=== PATIENT | male | born 1945 | race Caucasian/White ===

== ENCOUNTER 2024-05-15 16:52 | Inpatient (IN) ==
[2024-05-15 17:27] LABS: BILIRUBIN,URINE NEGATIVE (NEGATIVE); BLOOD/HEMOGLOBIN,URINE NEGATIVE (NEGATIVE); GLUCOSE, URINE 3+ (NEGATIVE); KETONES,URINE NEGATIVE (NEGATIVE); LEUKOCYTE ESTERASE ,URINE 1+ (NEGATIVE); NITRITES,URINE NEGATIVE (NEGATIVE); PROTEIN,URINE 1+ (NEGATIVE); UROBILINOGEN,URINE NORMAL (NORMAL)
[2024-05-15 17:32] LABS: APPEARANCE,URINE CLEAR (CLEAR); COLOR,URINE YELLOW (YELLOW)
[2024-05-15 17:35] LABS: BACTERIA,URINE 1+ /HPF (NEGATIVE); RBC,URINE NONE SEEN /HPF (0-3); SQUAMOUS EPITHELIAL CELL,UR FEW /HPF (NEGATIVE)
[2024-05-15 18:18] LABS: BASOPHILS % (AUTO) 0.3 % (0.2-1.0); EOSINOPHILS % (AUTO) 0.6 % (0.9-2.9); HEMATOCRIT 25.3 % (42.0-54.0); HEMOGLOBIN 8.8 g/dL (13.5-18.0); LYMPHOCYTES # (AUTO) 0.5 X10^3/uL (1.3-2.9); LYMPHOCYTES % (AUTO) 8.2 % (21.0-51.0); MEAN CORPUSCULAR HEMOGLOBIN 37.9 pg (27.0-34.0); MEAN CORPUSCULAR HGB CONC 34.9 g/dL (33.0-35.0); MEAN CORPUSCULAR VOLUME 108.7 fL (80.0-100.0); MEAN PLATELET VOLUME 10.1 fL (7.4-11.0); MONOCYTES # (AUTO) 0.5 x10^3/uL (0.3-0.8); MONOCYTES % (AUTO) 8.2 % (0.0-13.0); NEUTROPHILS # (AUTO) 4.6 x10^3/uL (2.2-4.8); NEUTROPHILS % (AUTO) 82.7 % (42.0-75.0); PLATELET COUNT 63 X10^3/uL (150.0-450.0); RED BLOOD COUNT 2.33 X10^6/uL (4.7-6.0); RED CELL DISTRIBUTION WIDTH 14.9 % (11.6-16.5); WHITE BLOOD COUNT 5.6 X10^3/uL (3.6-10.0)
[2024-05-15 18:30] LABS: ALBUMIN 3.1 g/dL (3.4-5.0); CALCIUM 9.4 mg/dL (8.5-10.1); CARBON DIOXIDE 27.5 mmol/L (21-32); COR CA(FOR HYPOALB) 10.1 mg/dL (8.5-10.1); CREATININE 5.2 mg/dL (0.70-1.30); PLATELET MORPHOLOGY COMMENT NORMAL (NORMAL); POTASSIUM 3.5 mmol/L (3.5-5.1); TOTAL PROTEIN 7.8 g/dL (6.4-8.2)
[2024-05-15] MEDS: NS 1,000 ML IV 1,000 ML IV SCH ×2 (20:25→22:40)
[2024-05-15] MEDS: BUMEX INJ 1 MG VIAL IVP ONE (20:25)
--- NOTE | 2024-05-15 20:33 | DR.DIZZY ---
HPI Time seen Time Seen by Provider: 05/15/24 17:53 PCP Primary Care Physician: Leticia Haas HPI Comment HPI Comment: Patient is a very nice older gentleman who has chronic kidney disease stage IV and congestive heart failure. He was recently admitted to the hospital with acute on chronic kidney disease and CHF exacerbation. Upon discharge he was doing a little better but has been worsening as far as feeling weak. Denies shortness of breath at this time. Denies chest pain. Denies any nausea or vomiting. Patient states he does not wish to have dialysis and [facility] Discussed case with patient and his family about possibil ity of admission and may be placement and rehab facility for deconditioning but will await results of workup for further discussion. Complaint Chief Complaint:: Calixto's daughter states that the patient was discharged from this hospital last Sunday due to dehydration and vomitting. They state that they are unsure of the diagnosis given on discharge. The daughter states that her and her brother have been taking care of the patient since then and has noticed that he has gotten weaker every day since. His intake has been more decreased than normal, and they suspect that he has not been taking his insulin and medications as prescribed. The daughter states that when she checked on him today, he was noticeably more weak and could not walk on his own. She states that he also has not taken his insulin in 2-3 days now. COVID-19 Coronavirus risk:travel/contact w/high risk person: Yes Has patient experienced Coronavirus symptoms: Yes Coronavirus symptoms experienced: Fever Source History Provided: Patient, Family Member and Significant Other Mode of Arrival Mode of Arrival: Stretcher Timing Onset of Chief Complaint: 05/09/24 Context Stroke Symptoms: None PMH PMH Past Medical History: Yes Past Medical History: CHF, Coronary Artery Disease, Diabetes, Hypertension, Hypothyroidism and [place] Past Surgical History: Yes Surgical History: AAA Repair, Abdominal Surgery, Angioplasty/Stents and Lithotripsy Family History History of Family Medical Conditions: Yes Family Medical History: Diabetes Mellitus, [place], Coronary Artery Disease, Heart Failure and Hypertension Social History Does patient currently use any type of tobacco product: No Have you used tobacco products in the last 12 months: No Type of Tobacco Use: None Does any household member use tobacco: No Alcohol Use: None Do you use any recreational Drugs:: No Lives With: Family Lives Where: Home Travel Risk Coronavirus risk:travel/contact w/high risk person: Yes Has patient experienced Coronavirus symptoms: Yes Coronavirus symptoms experienced: Fever Infectious screening In the last 2 months have you had wt loss of >10#?: NO Have you had fever, night sweats or hemotysis?: No Have you traveled outside the country in the last 6 months?: No Isolation: Standard ROS Review of Systems Constitutional: See HPI, Weakness (Generalized weakness) and Fatigue; negative Fever Eyes: No Symptoms Reported ENTM: No Symptoms Reported Respiratoy: No Symptoms Reported Cardiovascular: No Symptoms Reported; negative Chest Pain or Syncope Gastrointestinal/Abdominal: No Symptoms Reported; negative Abdominal Pain, Diarrhea, Nausea or Vomiting Genitourinary: No Symptoms Reported Neurological: No Symptoms Reported Musculoskeletal: No Symptoms Reported Integumentary: No Symptoms Reported Hematologic/Lymphatic: No Symptoms Reported Endocrine: No Symptoms Reported Psychiatric: No Symptoms Reported All Other Systems: Reviewed and Negative PE Vital Signs Vitals: Vital Signs Temperature 101.8 F Temperature 99.8 F Pulse Rate 78 Pulse Rate 73 Pulse Rate 74 Pulse Rate 72 Pulse Rate 78 Pulse Rate 73 Pulse Rate 74 Pulse Rate 79 Pulse Rate 77 Pulse Rate 79 Pulse Rate 77 Pulse Rate 76 Pulse Rate 74 Pulse Rate 77 Pulse Rate 78 Pulse Rate 68 Pulse Rate 86 Pulse Rate 69 Pulse Rate 82 Respiratory Rate 19 Respiratory Rate 19 Respiratory Rate 16 Respiratory Rate 23 Respiratory Rate 25 Respiratory Rate 22 Respiratory Rate 16 Respiratory Rate 19 Respiratory Rate 21 Respiratory Rate 24 Respiratory Rate 21 Respiratory Rate 18 Respiratory Rate 16 Respiratory Rate 21 Respiratory Rate 17 Respiratory Rate 23 Respiratory Rate 31 Respiratory Rate 23 Respiratory Rate 18 Blood Pressure 130/59 Blood Pressure 115/52 Blood Pressure 125/59 Blood Pressure 125/59 Blood Pressure 124/59 Blood Pressure 114/55 Blood Pressure 123/58 Blood Pressure 122/58 Blood Pressure 131/94 Blood Pressure 132/60 O2 Sat by Pulse Oximetry 93 O2 Sat by Pulse Oximetry 94 O2 Sat by Pulse Oximetry 95 O2 Sat by Pulse Oximetry 95 O2 Sat by Pulse Oximetry 94 O2 Sat by Pulse Oximetry 96 O2 Sat by Pulse Oximetry 97 O2 Sat by Pulse Oximetry 95 O2 Sat by Pulse Oximetry 95 O2 Sat by Pulse Oximetry 95 O2 Sat by Pulse Oximetry 94 O2 Sat by Pulse Oximetry 95 O2 Sat by Pulse Oximetry 94 O2 Sat by Pulse Oximetry 94 O2 Sat by Pulse Oximetry 95 O2 Sat by Pulse Oximetry 96 O2 Sat by Pulse Oximetry 96 O2 Sat by Pulse Oximetry 95 General Limitations: No Limitations General Appearance: Alert and In No Apparent Distress Head Head Exam: Normal Inspection Eyes Eye exam: Normal Appearance ENT ENT Exam: Normal Exam, Normal Oropharynx and Normal External Ear Exam Neck Neck Exam: Normal Inspection and Full ROM Chest Chest Inspection: Normal Inspection Respiratory Respiratory Exam: Normal Lung Sounds Bilat Cardiovascular Cardiovascular Exam: Regular Rate and Normal Rhythm Abdominal Exam Abdominal Exam: Normal Inspection, Normal Bowel Sounds and Soft Rectal Rectal Exam: Deferred Extremeties Extremities Exam: Normal Inspection and Full ROM Back Back Exam: Normal Inspection and Full ROM Neurologic Neurological Exam: Alert and Oriented X3 Psychiatric Psychiatric Exam: Normal Affect and Normal Mood Skin Skin Exam: Warm, Dry, Intact and Normal Color COURSE Consultation Called: 21:29 Consultation Comments: Discussed case with Dr. Mckeon. He is agreeable to admission. Based on his results it appears he is in acute on chronic renal failure with failure to thrive. Possibly a little bit fluid overloaded but clinically he does not appear like it is as much overload. Possibly UTI. [facility]OR Labs Reviewed 05/15/24 17:58 05/15/24 17:58 Laboratory: WBC 5.6 X10^3/uL (3.6-10.0) 05/15/24 17:58 RBC 2.33 X10^6/uL (4.7-6.0) L 05/15/24 17:58 Hgb 8.8 g/dL (13.5-18.0) L 05/15/24 17:58 Hct 25.3 % (42.0-54.0) L 05/15/24 17:58 MCV 108.7 fL (80.0-100.0) H 05/15/24 17:58 MCH 37.9 pg (27.0-34.0) H 05/15/24 17:58 MCHC 34.9 g/dL (33.0-35.0) 05/15/24 17:58 RDW 14.9 % (11.6-16.5) 05/15/24 17:58 Plt Count 63 X10^3/uL (150.0-450.0) L 05/15/24 17:58 Plt Count Comment Decreased (ADEQUATE) 05/15/24 17:58 MPV 10.1 fL (7.4-11.0) 05/15/24 17:58 Neut % (Auto) 82.7 % (42.0-75.0) H 05/15/24 17:58 Lymph % (Auto) 8.2 % (21.0-51.0) L 05/15/24 17:58 [place] % (Auto) 8.2 % (0.0-13.0) 05/15/24 17:58 Eos % (Auto) 0.6 % (0.9-2.9) L 05/15/24 17:58 Baso % (Auto) 0.3 % (0.2-1.0) 05/15/24 17:58 Neut # (Auto) 4.6 x10^3/uL (2.2-4.8) 05/15/24 17:58 Lymph # (Auto) 0.5 X10^3/uL (1.3-2.9) L 05/15/24 17:58 [place] # (Auto) 0.5 x10^3/uL (0.3-0.8) 05/15/24 17:58 Eos # (Auto) 0.0 x10^3/uL (0.0-0.2) 05/15/24 17:58 Baso # (Auto) 0.0 X10^3/uL (0.0-0.1) 05/15/24 17:58 Absolute Nucleated RBC 0.2 /100WBC 05/15/24 17:58 Plt Morphology Comment Normal (NORMAL) 05/15/24 17:58 RBC Morphology Abnormal (NORMAL) 05/15/24 17:58 Macrocytosis 1+ A 05/15/24 17:58 Sodium 134 mmol/L (136-145) L 05/15/24 17:58 Corrected Sodium 137 mmol/L (136-145) 05/15/24 17:58 Potassium 3.5 mmol/L (3.5-5.1) 05/15/24 17:58 Chloride 95 mmol/L (98-107) L 05/15/24 17:58 Carbon Dioxide 27.5 mmol/L (21-32) 05/15/24 17:58 BUN 107 mg/dL (7-18) H 05/15/24 17:58 Creatinine 5.20 mg/dL (0.70-1.30) H 05/15/24 17:58 Est GFR (MDRD) Af Amer 14 (>60) L 05/15/24 17:58 Est GFR (MDRD) Non-Af 11 (>60) L 05/15/24 17:58 Glucose 230 mg/dL (65-99) H 05/15/24 17:58 Calcium 9.4 mg/dL (8.5-10.1) 05/15/24 17:58 Corrected Calcium 10.1 mg/dL (8.5-10.1) 05/15/24 17:58 Total Bilirubin 1.40 mg/dL (0.2-1.0) H 05/15/24 17:58 AST 90 Units/L (15-37) H 05/15/24 17:58 ALT 73 Units/L (12-78) 05/15/24 17:58 Alkaline Phosphatase 280 Units/L (46-116) H 05/15/24 17:58 B-Natriuretic Peptide 1260 pg/mL (0-79) H 05/15/24 17:58 Total Protein 7.8 g/dL (6.4-8.2) 05/15/24 17:58 Albumin 3.1 g/dL (3.4-5.0) L 05/15/24 17:58 Globulin 4.7 g/dL (2.5-4.5) H 05/15/24 17:58 Albumin/Globulin Ratio 0.7 Ratio (1.1-2.1) L 05/15/24 17:58 Specimen Type Clean catch urine 05/15/24 17:20 Urine Color Yellow (YELLOW) 05/15/24 17:20 Urine Appearance Clear (CLEAR) 05/15/24 17:20 Urine pH 6.0 (5.0 - 8.0) 05/15/24 17:20 Ur Specific [place] 1.015 (1.000-1.030) 05/15/24 17:20 Urine Protein 1+ (NEGATIVE) 05/15/24 17:20 Urine Glucose (UA) 3+ (NEGATIVE) 05/15/24 17:20 Urine Ketones Negative (NEGATIVE) 05/15/24 17:20 Urine Blood Negative (NEGATIVE) 05/15/24 17:20 Urine Nitrite Negative (NEGATIVE) 05/15/24 17:20 Urine Bilirubin Negative (NEGATIVE) 05/15/24 17:20 Urine Urobilinogen Normal (NORMAL) 05/15/24 17:20 Ur Leukocyte Esterase 1+ (NEGATIVE) 05/15/24 17:20 Urine RBC None seen /HPF (0-3) 05/15/24 17:20 Urine WBC 10-20 /HPF (0-5) A 05/15/24 17:20 Ur Squamous Epith Cells Few /HPF (NEGATIVE) 05/15/24 17:20 Urine Bacteria 1+ /HPF (NEGATIVE) 05/15/24 17:20 Ur Culture Indicated? Yes/culture set up 05/15/24 17:20 Opioid Opioid Risk Tool Age (Murali box if 16-45): No History of Preadolescent Sexual Abuse: No Total: 0 Total Score Risk Category: Low Risk Copyright: Christopher CHIRINOS predicting aberrant behaviors Discharge Plan Diagnosis Discharge Problem: CHF (congestive heart failure), Adult failure to thrive, UTI (urinary tract infection) Acute on chronic kidney failure Qualifiers: Chronic kidney disease stage: stage 4 (GFR 15-29) Discharge Plan Patient Disposition: 09 ADMITTED INPATIENT Condition: Stable Prescriptions: No Action carvedilol 12.5 mg Tablet 12.5 mg PO BID allopurinol 100 mg Tablet 100 mg PO DAILY isosorbide mononitrate 60 mg Tablet Extended Release 24 Hr 60 mg PO DAILY tamsulosin 0.4 mg Capsule 0.4 mg PO DAILY aspirin 81 mg Tablet 81 mg PO DAILY ezetimibe 10 mg Tablet 5 mg PO DAILY cholecalciferol (vitamin D3) [Vitamin D3] 25 mcg (1,000 unit) Tablet 25 mcg PO DAILY levothyroxine 100 mcg Capsule 100 mcg PO DAILY apixaban 2.5 mg Tablet 2.5 mg PO BID sacubitril-valsartan 24-26 mg Tablet 26 tab PO BID furosemide 40 mg Tablet 40 mg PO DAILY metolazone 5 mg Tablet 5 mg PO DAILY bumetanide 1 mg Tablet 1 mg PO DAILY Novolin N NPH U-100 Insulin 100 unit/mL Suspension 30 unit SUBCUT BID metoclopramide HCl [Reglan] 10 mg Tablet 10 mg PO QACHS 30 Days Qty: 120 0RF pantoprazole 40 mg Tablet,Delayed Release (Dr/Ec) 40 mg PO BID 30 Days Qty: 60 0RF ondansetron 4 mg Tablet,Disintegrating 4 mg PO Q4H PRNQty: 30 0RF Health Concerns: Post Hospitalization: new medications and changes needed to prevent readmission or further decline. Pt educated and given instructions on all concerns. Plan of Treatment: Continue with present treatment and follow up plan. Pt is to keep follow up appointment as instructed and take medications as ordered. Orders to Discharge Patient Discharge Orders: Transfer (Routine); Ordered 05/15/24 Ordered By: Thomas Pena Follow ups/Referrals Follow ups/Referrals: ,Misc [Primary Care Provider] - 3 days Instructions Stand Alone Forms: Find Help Web Site, Post Hospital Follow Up Care
[2024-05-15] MEDS: ZOSYN VIAL 3.375 GRAMS 3.375 G in NS 100 ML IV 100 ML IV ONE (21:03)
[2024-05-15] MEDS: OFIRMEV IV 1000 MG VIAL 1,000 MG/100 ML VIAL IV ONE (21:03)
--- NOTE | 2024-05-15 21:57 | RAD ---
EXAM:CHEST, 1 VIEWHISTORY:WEAKNESS, ELEVATED BNP ; CT, CAD, HTN, DM, CHF SX: AAA REPAIR, ABD SX, ANGIO/STENTS, LITHOTRIPSYCOMPARISON:None.TECHNIQUE:1 frontal view of the chestFINDINGS:Pacemaker with power pack on the right. Median sternotomy wires. Heart silhouette is enlarged. Underlying interstitial lung disease. Mild airspace infiltrates in the left lower lung. Mild pulmonary vascular congestion.IMPRESSION:Cardiomegaly with interstitial lung disease. Mild pulmonary vascular congestion. Left lower lobe atelectasis versus pneumonia.THIS IS AN ELECTRONICALLY VERIFIED FINAL REPORT05/15/2024 9:53 PM - Electronically signed by Mikael Tejada MD
[2024-05-15 22:16] LABS: BILIRUBIN,URINE NEGATIVE (NEGATIVE); BLOOD/HEMOGLOBIN,URINE NEGATIVE (NEGATIVE); GLUCOSE, URINE 3+ (NEGATIVE); KETONES,URINE NEGATIVE (NEGATIVE); LEUKOCYTE ESTERASE ,URINE 1+ (NEGATIVE); NITRITES,URINE NEGATIVE (NEGATIVE); PROTEIN,URINE NEGATIVE (NEGATIVE); UROBILINOGEN,URINE NORMAL (NORMAL)
[2024-05-15 22:19] LABS: APPEARANCE,URINE CLEAR (CLEAR); COLOR,URINE YELLOW (YELLOW)
[2024-05-15 22:22] LABS: RBC,URINE 0-2 /HPF (0-3)
[2024-05-15] MEDS ORDERED: CONSULT PHARMACY - POTASSIUM & MAGNESIUM XX SCH (22:22)
[2024-05-15 22:23] LABS: BACTERIA,URINE 2+ /HPF (NEGATIVE); HYALINE CASTS, URINE RARE /LPF (NEGATIVE); SQUAMOUS EPITHELIAL CELL,UR RARE /HPF (NEGATIVE)
[2024-05-15] MEDS ORDERED: NS 1,000 ML IV 1,000 ML ONE (22:37)
[2024-05-15] MEDS: KLOR-CON 10 MEQ TAB PO ONE (23:42)
[2024-05-15] MEDS: ROCEPHIN VIAL 1 GRAM 1 G in NS 100 ML IV 100 ML IV SCH (23:42)
[2024-05-16 00:17] VITALS: BMI 26.9
[2024-05-16 04:59] LABS: BASOPHILS % (AUTO) 0.6 % (0.2-1.0); EOSINOPHILS % (AUTO) 0.1 % (0.9-2.9); HEMATOCRIT 24.4 % (42.0-54.0); HEMOGLOBIN 8.5 g/dL (13.5-18.0); LYMPHOCYTES # (AUTO) 0.4 X10^3/uL (1.3-2.9); LYMPHOCYTES % (AUTO) 7.9 % (21.0-51.0); MEAN CORPUSCULAR HEMOGLOBIN 37.8 pg (27.0-34.0); MEAN CORPUSCULAR HGB CONC 34.9 g/dL (33.0-35.0); MEAN CORPUSCULAR VOLUME 108.3 fL (80.0-100.0); MONOCYTES # (AUTO) 0.5 x10^3/uL (0.3-0.8); MONOCYTES % (AUTO) 8.7 % (0.0-13.0); NEUTROPHILS # (AUTO) 4.6 x10^3/uL (2.2-4.8); NEUTROPHILS % (AUTO) 82.7 % (42.0-75.0); PLATELET COUNT 51 X10^3/uL (150.0-450.0); RED BLOOD COUNT 2.26 X10^6/uL (4.7-6.0); RED CELL DISTRIBUTION WIDTH 14.9 % (11.6-16.5); WHITE BLOOD COUNT 5.5 X10^3/uL (3.6-10.0)
[2024-05-16 05:20] LABS: ALBUMIN 2.6 g/dL (3.4-5.0); CALCIUM 8.6 mg/dL (8.5-10.1); CARBON DIOXIDE 25.8 mmol/L (21-32); COR CA(FOR HYPOALB) 9.7 mg/dL (8.5-10.1); CREATININE 5.24 mg/dL (0.70-1.30); MAGNESIUM 1.9 mg/dL (2.0-2.9); POTASSIUM 3.3 mmol/L (3.5-5.1); TOTAL PROTEIN 6.8 g/dL (6.4-8.2)
[2024-05-16] MEDS ORDERED: CONSULT PHARMACY - POTASSIUM & MAGNESIUM XX SCH (06:00)
[2024-05-16] MEDS: NovoLIN R (or HumuLIN R) SUBCUT PRN (06:01)
[2024-05-16 06:40] LABS: PLATELET MORPHOLOGY COMMENT NORMAL (NORMAL)
[2024-05-16] MEDS: K-DUR TAB 20 MEQ PO SCH (09:03)
[2024-05-16] MEDS: FLOMAX PO SCH (09:03)
[2024-05-16] MEDS: SYNTHROID 100 mcg TAB PO SCH (09:03)
[2024-05-16] MEDS: ELIQUIS PO SCH (09:03)
[2024-05-16] MEDS: MAG-OX TAB PO SCH (09:03)
[2024-05-16] MEDS: COREG TAB 12.5 MG PO SCH (09:03)
[2024-05-16] MEDS: NS 250 ML IV 250 ML IV ONE ×2 (14:36→14:40)
--- NOTE | 2024-05-16 15:00 | DR.H&P ---
H&P History & Physical for Day of: H&P Date: 05/15/24 Chief Complaint Chief Complaint: WEAKNESS, POOR APPETITE History of Present Illness History of Present Illness: Patient is a 79 WM, ER admission, who has chronic kidney disease stage IV and congestive heart failure. He was recently admitted to the hospital with acute on chronic kidney disease and CHF exacerbation. Upon discharge he was doing a little better but has been worsening as far as feeling weak. Denies shortness of breath at this time. Denies chest pain. Denies any nausea or vomiting. Patient states he does not wish to have dialysis and he follows with the [facility]. Discussed case with patient and his family about possibility of admission and may be placement and rehab facility for deconditioning but will await results of workup for further discussion. Past Medical History Past Medical History: CHF, Coronary Artery Disease, Diabetes, Hypertension, Hypothyroidism and [place] Past Surgical History Surgical History: AAA Repair, Abdominal Surgery, Angioplasty/Stents and Lithotripsy Family History Family Medical History: Diabetes Mellitus, AR, Coronary Artery Disease, Heart Failure and Hypertension Social History Does patient currently use any type of tobacco product: No Have you used tobacco products in the last 12 months: No Type of Tobacco Use: None Does any household member use tobacco: No Alcohol Use: None Drug Use: None Medications Home Medications: Home Medications Medication Instructions Recorded Confirmed Type allopurinol 100 mg tablet 100 mg PO DAILY 05/06/24 05/15/24 History apixaban 2.5 mg tablet 2.5 mg PO BID 05/06/24 05/15/24 History aspirin 81 mg tablet 81 mg PO DAILY 05/06/24 05/15/24 History bumetanide 1 mg tablet 1 mg PO DAILY 05/06/24 05/15/24 History carvedilol 12.5 mg tablet 12.5 mg PO BID 05/06/24 05/15/24 History cholecalciferol (vitamin D3) 25 25 mcg PO DAILY 05/06/24 05/15/24 History mcg (1,000 unit) tablet (Vitamin D3) ezetimibe 10 mg tablet 5 mg PO DAILY 05/06/24 05/15/24 History furosemide 40 mg tablet 40 mg PO DAILY 05/06/24 05/15/24 History isosorbide mononitrate 60 mg 60 mg PO DAILY 05/06/24 05/15/24 History tablet,extended release 24 hr levothyroxine 100 mcg capsule 100 mcg PO DAILY 05/06/24 05/15/24 History metolazone 5 mg tablet 5 mg PO DAILY 05/06/24 05/15/24 History sacubitril 24 mg-valsartan 26 mg 26 tab PO BID 05/06/24 05/15/24 History tablet tamsulosin 0.4 mg capsule 0.4 mg PO DAILY 05/06/24 05/15/24 History insulin NPH isoph U-100 human 100 30 unit subcut BID 05/07/24 05/15/24 History unit/mL subcutaneous suspension (Novolin N NPH U-100 Insulin isophane) Allergies Allergies Allergy/AdvReac Type Severity Reaction Status Date / Time codeine Allergy Verified 05/15/24 16:53 Labs 05/16/24 04:15 05/16/24 04:15 Labs: 05/15/24 17:58 Blood Blood Culture Gram Stain - Final 05/15/24 21:00 Blood Blood Culture Gram Stain - Final 05/15/24 21:00 Blood Blood Culture - Preliminary 05/15/24 17:20 Urine,Clean Catch Urine Culture - Preliminary Laboratory WBC 5.5 X10^3/uL (3.6-10.0) 05/16/24 04:15 RBC 2.26 X10^6/uL (4.7-6.0) L 05/16/24 04:15 Hgb 8.5 g/dL (13.5-18.0) L 05/16/24 04:15 Hct 24.4 % (42.0-54.0) L 05/16/24 04:15 MCV 108.3 fL (80.0-100.0) H 05/16/24 04:15 MCH 37.8 pg (27.0-34.0) H 05/16/24 04:15 MCHC 34.9 g/dL (33.0-35.0) 05/16/24 04:15 RDW 14.9 % (11.6-16.5) 05/16/24 04:15 Plt Count 51 X10^3/uL (150.0-450.0) L 05/16/24 04:15 Plt Count Comment Decreased (ADEQUATE) 05/16/24 04:15 MPV 10.0 fL (7.4-11.0) 05/16/24 04:15 Neut % (Auto) 82.7 % (42.0-75.0) H 05/16/24 04:15 Lymph % (Auto) 7.9 % (21.0-51.0) L 05/16/24 04:15 [place] % (Auto) 8.7 % (0.0-13.0) 05/16/24 04:15 Eos % (Auto) 0.1 % (0.9-2.9) L 05/16/24 04:15 Baso % (Auto) 0.6 % (0.2-1.0) 05/16/24 04:15 Neut # (Auto) 4.6 x10^3/uL (2.2-4.8) 05/16/24 04:15 Lymph # (Auto) 0.4 X10^3/uL (1.3-2.9) L 05/16/24 04:15 [place] # (Auto) 0.5 x10^3/uL (0.3-0.8) 05/16/24 04:15 Eos # (Auto) 0.0 x10^3/uL (0.0-0.2) 05/16/24 04:15 Baso # (Auto) 0.0 X10^3/uL (0.0-0.1) 05/16/24 04:15 Absolute Nucleated RBC 0.0 /100WBC 05/16/24 04:15 Plt Morphology Comment Normal (NORMAL) 05/16/24 04:15 RBC Morphology Abnormal (NORMAL) 05/16/24 04:15 Macrocytosis 1+ A 05/16/24 04:15 Sodium 135 mmol/L (136-145) L 05/16/24 04:15 Corrected Sodium 138 mmol/L (136-145) 05/16/24 04:15 Potassium 3.3 mmol/L (3.5-5.1) L 05/16/24 04:15 Chloride 98 mmol/L (98-107) 05/16/24 04:15 Carbon Dioxide 25.8 mmol/L (21-32) 05/16/24 04:15 BUN 111 mg/dL (7-18) H 05/16/24 04:15 Creatinine 5.24 mg/dL (0.70-1.30) H 05/16/24 04:15 Est GFR (MDRD) Af Amer 14 (>60) L 05/16/24 04:15 Est GFR (MDRD) Non-Af 11 (>60) L 05/16/24 04:15 Glucose 226 mg/dL (65-99) H 05/16/24 04:15 POC Glucose (mg/dL) 226 mg/dL (65-99) H 05/16/24 12:23 Hemoglobin A1c 6.8 % 05/16/24 04:15 Lactic Acid 1.7 mmol/L (0.4-2.0) 05/15/24 21:00 Calcium 8.6 mg/dL (8.5-10.1) 05/16/24 04:15 Corrected Calcium 9.7 mg/dL (8.5-10.1) 05/16/24 04:15 Magnesium 1.9 mg/dL (2.0-2.9) L 05/16/24 04:15 Magnesium Cancelled 05/16/24 04:15 Total Bilirubin 1.70 mg/dL (0.2-1.0) H 05/16/24 04:15 AST 65 Units/L (15-37) H 05/16/24 04:15 ALT 57 Units/L (12-78) 05/16/24 04:15 Alkaline Phosphatase 220 Units/L (46-116) H 05/16/24 04:15 B-Natriuretic Peptide 2290 pg/mL (0-79) H 05/16/24 04:15 Total Protein 6.8 g/dL (6.4-8.2) 05/16/24 04:15 Albumin 2.6 g/dL (3.4-5.0) L 05/16/24 04:15 Globulin 4.2 g/dL (2.5-4.5) 05/16/24 04:15 Albumin/Globulin Ratio 0.6 Ratio (1.1-2.1) L 05/16/24 04:15 Specimen Type Catherized urine 05/15/24 22:08 Urine Color Yellow (YELLOW) 05/15/24 22:08 Urine Appearance Clear (CLEAR) 05/15/24 22:08 Urine pH 6.0 (5.0 - 8.0) 05/15/24 22:08 Ur Specific [place] 1.010 (1.000-1.030) 05/15/24 22:08 Urine Protein Negative (NEGATIVE) 05/15/24 22:08 Urine Glucose (UA) 3+ (NEGATIVE) 05/15/24 22:08 Urine Ketones Negative (NEGATIVE) 05/15/24 22:08 Urine Blood Negative (NEGATIVE) 05/15/24 22:08 Urine Nitrite Negative (NEGATIVE) 05/15/24 22:08 Urine Bilirubin Negative (NEGATIVE) 05/15/24 22:08 Urine Urobilinogen Normal (NORMAL) 05/15/24 22:08 Ur Leukocyte Esterase 1+ (NEGATIVE) 05/15/24 22:08 Urine RBC 0-2 /HPF (0-3) 05/15/24 22:08 Urine WBC 10-20 /HPF (0-5) A 05/15/24 22:08 Ur Squamous Epith Cells Rare /HPF (NEGATIVE) 05/15/24 22:08 Urine Bacteria 2+ /HPF (NEGATIVE) 05/15/24 22:08 Hyaline Casts Rare /LPF (NEGATIVE) 05/15/24 22:08 Ur Culture Indicated? Yes/culture set up 05/15/24 22:08 SARS-CoV-2 (PCR) Negative (NEGATIVE) 05/15/24 20:52 Influenza Type A (PCR) Negative (NEGATIVE) 05/15/24 20:52 Influenza Type B (PCR) Negative (NEGATIVE) 05/15/24 20:52 RSV (PCR) Negative (NEGATIVE) 05/15/24 20:52 Review of Systems Constitutional: Weakness Eyes: No Symptoms Reported ENT: No Symptoms Reported Respiratory: denies Shortness of Breath Cardiovascular: Edema; denies Chest Pain Gastrointestinal: Nausea and Other (appetite loss) Genitourinary: Frequency Musculoskeletal: No Symptoms Reported Skin: No Symptoms Reported Neurological: Weakness Physical Exam Vital Signs: Vital Signs Temperature 98.1 F Temperature 97.9 F Pulse Rate [Left Apical] 63 Pulse Rate [Left Apical] 63 Respiratory Rate 22 Respiratory Rate 17 Blood Pressure [Left Arm] 92/56 Blood Pressure [Left Arm] 97/46 O2 Sat by Pulse Oximetry 95 O2 Sat by Pulse Oximetry 97 Oriented: Normal Eyes: Normal Ear: Normal Nose: Normal Throat: Dry Respiratory: Diminished Throughout Cardiovascular: Other (pacemaker palpable ); negative Tachycardia : Frequency Auscultation: Bowel Sounds: Normal Palpation: Normal Tenderness: Normal Skin: Decreased [place]urgur Musculoskeletal: Motor Deficit Psychiatric: Normal Mood Description: Calm Affect: Normal Speech Pattern: Clear and Appropriate Assessment/Plan (1) UTI (urinary tract infection): Status: Acute Plan: ADMIT, IV HYDRATION, CARDIAC MONITORING AND BP CONTROL IV ATBX, VERIFY HOME MEDICATIONS BS CONTROL, GENTLE IV HYDRATION CXR ON ER ADMISSION (2) Acute on chronic kidney failure: Qualifiers: Chronic kidney disease stage: stage 4 (GFR 15-29) Status: Acute (3) CHF (congestive heart failure): Status: Chronic (4) CAD (coronary artery disease): Qualifiers: Coronary Disease-Associated Artery/Lesion type: unspecified vessel or lesion type [place] vs. transplanted heart: [place] heart Associated angina: [facility] angina Qualified Code(s): I25.10 - Atherosclerotic heart disease of [place] coronary artery without angina pectoris Status: Chronic (5) Adult failure to thrive: Status: Acute
[2024-05-16 15:05] LABS: RETICULOCYTE % 1.77 % (0.8-2.2)
--- NOTE | 2024-05-16 15:05 | PCM.PROG ---
Progress Note Progress Note for Day of Date of Exam: 05/16/24 Subjective Subjective: PT IS 79 WM, ER ADMISSION WITH ACUTE ON CHRONIC RENAL FAILURE, DIFFUSE WEAKNESS, POSSIBLE PNEUMONIA ON HIS ADMISSION CHEST XRAY. PT HAS PMH OF AFIB, WITH PACEMAKER/DEFIBRILLATOR ON [facility] ELIQUIS. PT HGB AT 8.5 THIS AM PLATELETS AT 51. OCCULT STOOL ORDERED AND ANEMIA PANEL WILL HOLD ELIQUIS DOSE. PLAN TO OBTAIN AN ECHO. [facility]. PT DENIES CHEST PAIN THIS AM BUT REPORTS "FEELING THE SICKEST [facility] [facility]" CXR OBTAINED THIS AM NOT AVAILABLE ON MORNING ROUNDS. PT DOES HAVE A HUNT FOR STRICT I&OS. PT HAD A DOSE OF BUMEX IN ER ON ADMISSION. BUN 111M CREAT 5.24 CONTINUE WITH VERY GENTLE IV HYDRATION, ENCOURAGED ORAL HYDRATION, ORAL NUTRI TION. Past Medical Family Social History Allergies: Allergies codeine Allergy (Verified 05/15/24 16:53) Vital Signs and I&O's Vital Signs: Vital Signs Temperature 98.1 F Temperature 97.9 F Pulse Rate [Left Apical] 63 Pulse Rate [Left Apical] 63 Respiratory Rate 22 Respiratory Rate 17 Blood Pressure [Left Arm] 92/56 Blood Pressure [Left Arm] 97/46 O2 Sat by Pulse Oximetry 95 O2 Sat by Pulse Oximetry 97 Intake and Output: Intake & Output 05/14/24 05/15/24 05/16/24 05/17/24 11:59 11:59 11:59 11:59 Intake Total 590 / 590 Output Total 1600 / 1600 Balance -1010 / -1010 Physical Exam Oriented: Normal Eyes: Normal Ear: Normal Nose: Normal Throat: Dry Cardiovascular: Other (pacemaker palpable ); negative Tachycardia : Frequency Auscultation: Bowel Sounds: Normal Tenderness: Normal Skin: Decreased Turgur Musculoskeletal: Motor Deficit Psychiatric: Normal Mood Description: Calm Affect: Normal Speech Pattern: Clear and Appropriate Laboratory and Diagnostics 05/16/24 04:15 05/16/24 04:15 Labs: 05/15/24 17:58 Blood Blood Culture Gram Stain - Final 05/15/24 21:00 Blood Blood Culture Gram Stain - Final 05/15/24 21:00 Blood Blood Culture - Preliminary 05/15/24 17:20 Urine,Clean Catch Urine Culture - Preliminary Laboratory WBC 5.5 X10^3/uL (3.6-10.0) 05/16/24 04:15 RBC 2.26 X10^6/uL (4.7-6.0) L 05/16/24 04:15 Hgb 8.5 g/dL (13.5-18.0) L 05/16/24 04:15 Hct 24.4 % (42.0-54.0) L 05/16/24 04:15 MCV 108.3 fL (80.0-100.0) H 05/16/24 04:15 MCH 37.8 pg (27.0-34.0) H 05/16/24 04:15 MCHC 34.9 g/dL (33.0-35.0) 05/16/24 04:15 RDW 14.9 % (11.6-16.5) 05/16/24 04:15 Plt Count 51 X10^3/uL (150.0-450.0) L 05/16/24 04:15 Plt Count Comment Decreased (ADEQUATE) 05/16/24 04:15 MPV 10.0 fL (7.4-11.0) 05/16/24 04:15 Neut % (Auto) 82.7 % (42.0-75.0) H 05/16/24 04:15 Lymph % (Auto) 7.9 % (21.0-51.0) L 05/16/24 04:15 [place] % (Auto) 8.7 % (0.0-13.0) 05/16/24 04:15 Eos % (Auto) 0.1 % (0.9-2.9) L 05/16/24 04:15 Baso % (Auto) 0.6 % (0.2-1.0) 05/16/24 04:15 Neut # (Auto) 4.6 x10^3/uL (2.2-4.8) 05/16/24 04:15 Lymph # (Auto) 0.4 X10^3/uL (1.3-2.9) L 05/16/24 04:15 [place] # (Auto) 0.5 x10^3/uL (0.3-0.8) 05/16/24 04:15 Eos # (Auto) 0.0 x10^3/uL (0.0-0.2) 05/16/24 04:15 Baso # (Auto) 0.0 X10^3/uL (0.0-0.1) 05/16/24 04:15 Absolute Nucleated RBC 0.0 /100WBC 05/16/24 04:15 Plt Morphology Comment Normal (NORMAL) 05/16/24 04:15 RBC Morphology Abnormal (NORMAL) 05/16/24 04:15 Macrocytosis 1+ A 05/16/24 04:15 Sodium 135 mmol/L (136-145) L 05/16/24 04:15 Corrected Sodium 138 mmol/L (136-145) 05/16/24 04:15 Potassium 3.3 mmol/L (3.5-5.1) L 05/16/24 04:15 Chloride 98 mmol/L (98-107) 05/16/24 04:15 Carbon Dioxide 25.8 mmol/L (21-32) 05/16/24 04:15 BUN 111 mg/dL (7-18) H 05/16/24 04:15 Creatinine 5.24 mg/dL (0.70-1.30) H 05/16/24 04:15 Est GFR (MDRD) Af Amer 14 (>60) L 05/16/24 04:15 Est GFR (MDRD) Non-Af 11 (>60) L 05/16/24 04:15 Glucose 226 mg/dL (65-99) H 05/16/24 04:15 POC Glucose (mg/dL) 226 mg/dL (65-99) H 05/16/24 12:23 Hemoglobin A1c 6.8 % 05/16/24 04:15 Lactic Acid 1.7 mmol/L (0.4-2.0) 05/15/24 21:00 Calcium 8.6 mg/dL (8.5-10.1) 05/16/24 04:15 Corrected Calcium 9.7 mg/dL (8.5-10.1) 05/16/24 04:15 Magnesium 1.9 mg/dL (2.0-2.9) L 05/16/24 04:15 Magnesium Cancelled 05/16/24 04:15 Total Bilirubin 1.70 mg/dL (0.2-1.0) H 05/16/24 04:15 AST 65 Units/L (15-37) H 05/16/24 04:15 ALT 57 Units/L (12-78) 05/16/24 04:15 Alkaline Phosphatase 220 Units/L (46-116) H 05/16/24 04:15 B-Natriuretic Peptide 2290 pg/mL (0-79) H 05/16/24 04:15 Total Protein 6.8 g/dL (6.4-8.2) 05/16/24 04:15 Albumin 2.6 g/dL (3.4-5.0) L 05/16/24 04:15 Globulin 4.2 g/dL (2.5-4.5) 05/16/24 04:15 Albumin/Globulin Ratio 0.6 Ratio (1.1-2.1) L 05/16/24 04:15 Specimen Type Catherized urine 05/15/24 22:08 Urine Color Yellow (YELLOW) 05/15/24 22:08 Urine Appearance Clear (CLEAR) 05/15/24 22:08 Urine pH 6.0 (5.0 - 8.0) 05/15/24 22:08 Ur Specific [place] 1.010 (1.000-1.030) 05/15/24 22:08 Urine Protein Negative (NEGATIVE) 05/15/24 22:08 Urine Glucose (UA) 3+ (NEGATIVE) 05/15/24 22:08 Urine Ketones Negative (NEGATIVE) 05/15/24 22:08 Urine Blood Negative (NEGATIVE) 05/15/24 22:08 Urine Nitrite Negative (NEGATIVE) 05/15/24 22:08 Urine Bilirubin Negative (NEGATIVE) 05/15/24 22:08 Urine Urobilinogen Normal (NORMAL) 05/15/24 22:08 Ur Leukocyte Esterase 1+ (NEGATIVE) 05/15/24 22:08 Urine RBC 0-2 /HPF (0-3) 05/15/24 22:08 Urine WBC 10-20 /HPF (0-5) A 05/15/24 22:08 Ur Squamous Epith Cells Rare /HPF (NEGATIVE) 05/15/24 22:08 Urine Bacteria 2+ /HPF (NEGATIVE) 05/15/24 22:08 Hyaline Casts Rare /LPF (NEGATIVE) 05/15/24 22:08 Ur Culture Indicated? Yes/culture set up 05/15/24 22:08 SARS-CoV-2 (PCR) Negative (NEGATIVE) 05/15/24 20:52 Influenza Type A (PCR) Negative (NEGATIVE) 05/15/24 20:52 Influenza Type B (PCR) Negative (NEGATIVE) 05/15/24 20:52 RSV (PCR) Negative (NEGATIVE) 05/15/24 20:52 Plan (1) UTI (urinary tract infection): Status: Acute Plan: IV HYDRATION, CARDIAC MONITORING AND BP CONTROL ECHO, ANEMIA PANEL, OBTAIN OCCULT STOOL IV ATBX, VERIFY HOME MEDICATIONS BS CONTROL, GENTLE IV HYDRATION CXR ON ER ADMISSION (2) Acute on chronic kidney failure: Status: Acute Qualifiers: Chronic kidney disease stage: stage 4 (GFR 15-29) (3) CHF (congestive heart failure): Status: Chronic (4) CAD (coronary artery disease): Status: Chronic Qualifiers: Coronary Disease-Associated Artery/Lesion type: unspecified vessel or lesion type [place] vs. transplanted heart: [place] heart Associated angina: without angina Qualified Code(s): I25.10 - Atherosclerotic heart disease of [place] coronary artery without angina pectoris (5) Adult failure to thrive: Status: Acute
--- NOTE | 2024-05-16 15:11 | RAD ---
EXAM: CHEST, 1 VIEW HISTORY: CHF, PNEUMONIA; COMPARISON: Prior study or studies were utilized for comparison during interpretation with the most relevant valorie ed yesterday TECHNIQUE: CHEST, 1 VIEW FINDINGS: Chest: Lines and tubes: Right-sided pacemaker generator with lead or leads in satisfactory position. There are abandoned left-sided pacemaker leads. Cardiac leads overlie the chest Mediastinum: Median sternotomy wires are present. The cardiac shadow is enlarged. Pulmonary vessels: Pulmonary vasculature is prominent. Lung hoang: No suspicious airspace opacity. Pleura: No effusion. No pneumothorax. Bones and soft tissues: No acute osseous or soft tissue abnormality. IMPRESSION: 1. Slight improvement in pulmonary vascular congestion when compared to yesterday THIS IS AN ELECTRONICALLY VERIFIED FINAL REPORT 05/16/2024 3:01 PM - Electronically signed by Hayden Garcia MD
[2024-05-16] MEDS: PROTONIX INJ 40 MG VIAL IVP SCH (15:31)
[2024-05-16] MEDS: INJECTAFER 750 MG in NS 250 ML IV 250 ML IV NR (19:16)
[2024-05-16] MEDS: COLACE CAP 100 MG PO PRN (20:18)
[2024-05-16] MEDS: SNACK - Diabetic Appropriate PO SCH (20:35)
[2024-05-16] MEDS: LASIX IVP SCH (21:49)
[2024-05-16] MEDS: MILK OF MAGNESIA PO PRN (23:59)
--- NOTE | 2024-05-17 04:53 | RAD ---
PROCEDURE: Chest X-ray 1 View. HISTORY: CHF; HX: CAD, CHF, MA, HTN, DM SX: PACEMAKER, ANGIOPLASTY/STENTS . TECHNIQUE: AP view. COMPARISON: 05/16/2024. TECHNICAL QUALITY: Satisfactory. FINDINGS: Normal-sized heart with pacemaker on the right. Mediastinum and hilar regions show no masses or lymphadenopathy. Normal central vascularity. No pulmonary consolidation, masses, pleural fluid, or pneumothorax. No acute bony abnormality. IMPRESSION: No evidence of active cardiopulmonary disease. THIS IS AN ELECTRONICALLY VERIFIED FINAL REPORT 05/17/2024 4:49 AM - Electronically signed by Hussein Shea MD
[2024-05-17 05:13] LABS: EOSINOPHILS # (AUTO) 0.1 x10^3/uL (0.0-0.2); LYMPHOCYTES # (AUTO) 0.6 X10^3/uL (1.3-2.9); MEAN CORPUSCULAR HGB CONC 35.2 g/dL (33.0-35.0); MONOCYTES # (AUTO) 0.4 x10^3/uL (0.3-0.8); NEUTROPHILS # (AUTO) 1.8 x10^3/uL (2.2-4.8)
[2024-05-17 05:19] LABS: BASOPHILS % (AUTO) 0.6 % (0.2-1.0); EOSINOPHILS % (AUTO) 2.6 % (0.9-2.9); HEMATOCRIT 22.8 % (42.0-54.0); LYMPHOCYTES % (AUTO) 20.6 % (21.0-51.0); MEAN CORPUSCULAR HEMOGLOBIN 38.4 pg (27.0-34.0); MEAN PLATELET VOLUME 10.8 fL (7.4-11.0); MONOCYTES % (AUTO) 14.5 % (0.0-13.0); NEUTROPHILS % (AUTO) 61.7 % (42.0-75.0); PLATELET COUNT 45 X10^3/uL (150.0-450.0); RED BLOOD COUNT 2.09 X10^6/uL (4.7-6.0)
[2024-05-17 05:28] LABS: ALBUMIN 2.3 g/dL (3.4-5.0); CALCIUM 8.4 mg/dL (8.5-10.1); CARBON DIOXIDE 24.2 mmol/L (21-32); COR CA(FOR HYPOALB) 9.8 mg/dL (8.5-10.1); CREATININE 5.73 mg/dL (0.70-1.30); POTASSIUM 3.3 mmol/L (3.5-5.1); TOTAL PROTEIN 6.6 g/dL (6.4-8.2)
[2024-05-17 06:58] LABS: PLATELET MORPHOLOGY COMMENT NORMAL (NORMAL)
[2024-05-17 07:00] LABS: TARGET CELLS PRESENT
[2024-05-17] MEDS ORDERED: CONSULT PHARMACY - POTASSIUM & MAGNESIUM XX SCH (09:00)
[2024-05-17] MEDS: NS + KCL 20 MEQ/L 1,000 ML with MAGNESIUM SULFATE 50% INJ VIAL 1 G IV SCH (09:56)
[2024-05-17] MEDS ORDERED: NS 1,000 ML IV 1,000 ML IV SCH (10:00)
[2024-05-17] MEDS: LASIX IVP SCH (21:19)
[2024-05-17] MEDS: ZYVOX 600MG IV 600 MG/300 ML BAG IV SCH (22:18)
[2024-05-18] MEDS: TYLENOL 325 MG TAB PO PRN (02:21)
[2024-05-18 05:16] LABS: EOSINOPHILS # (AUTO) 0.1 x10^3/uL (0.0-0.2); HEMOGLOBIN 7.6 g/dL (13.5-18.0); MONOCYTES # (AUTO) 0.4 x10^3/uL (0.3-0.8); WHITE BLOOD COUNT 2.6 X10^3/uL (3.6-10.0)
[2024-05-18] MEDS ORDERED: TYLENOL 325 MG TAB PO PRN (05:18)
[2024-05-18 05:23] LABS: HEMATOCRIT 21.6 % (42.0-54.0); LYMPHOCYTES # (AUTO) 0.8 X10^3/uL (1.3-2.9); MONOCYTES % (AUTO) 15.5 % (0.0-13.0); NEUTROPHILS # (AUTO) 1.3 x10^3/uL (2.2-4.8)
[2024-05-18 05:27] LABS: BASOPHILS % (AUTO) 0.5 % (0.2-1.0); EOSINOPHILS % (AUTO) 5.1 % (0.9-2.9); LYMPHOCYTES % (AUTO) 28.6 % (21.0-51.0); MEAN CORPUSCULAR HEMOGLOBIN 38.2 pg (27.0-34.0); MEAN CORPUSCULAR HGB CONC 35.3 g/dL (33.0-35.0); MEAN CORPUSCULAR VOLUME 108.3 fL (80.0-100.0); NEUTROPHILS % (AUTO) 50.3 % (42.0-75.0); PLATELET COUNT 44 X10^3/uL (150.0-450.0); RED BLOOD COUNT 1.99 X10^6/uL (4.7-6.0); RED CELL DISTRIBUTION WIDTH 14.8 % (11.6-16.5)
[2024-05-18] MEDS: NORCO 5/325 MG TAB PO PRN (05:36)
[2024-05-18 05:50] LABS: CARBON DIOXIDE 25.2 mmol/L (21-32); COR CA(FOR HYPOALB) 9.6 mg/dL (8.5-10.1); CREATININE 5.58 mg/dL (0.70-1.30); MAGNESIUM 2.6 mg/dL (2.0-2.9); POTASSIUM 3.3 mmol/L (3.5-5.1)
[2024-05-18 07:03] LABS: PLATELET MORPHOLOGY COMMENT NORMAL (NORMAL); TARGET CELLS PRESENT
[2024-05-18] MEDS: NS + KCL 20 MEQ/L 1,000 ML IV SCH (10:30)
[2024-05-18] MEDS: K-DUR TAB 20 MEQ PO SCH (10:30)
[2024-05-18] MEDS: HEMOCYTE PLUS PO SCH (12:30)
[2024-05-18] MEDS: NS 250 ML IV 200 ML IV ONE (13:41)
[2024-05-18] MEDS: ZOFRAN INJ 4 MG VIAL IVP PRN (18:40)
[2024-05-18] MEDS: PROTONIX INJ 40 MG VIAL IVP ONE (19:11)
[2024-05-18] MEDS: ELIQUIS PO SCH (21:32)
[2024-05-19 05:49] LABS: BASOPHILS % (AUTO) 0.6 % (0.2-1.0); EOSINOPHILS # (AUTO) 0.2 x10^3/uL (0.0-0.2); EOSINOPHILS % (AUTO) 5.8 % (0.9-2.9); HEMATOCRIT 23.3 % (42.0-54.0); HEMOGLOBIN 8.1 g/dL (13.5-18.0); LYMPHOCYTES # (AUTO) 0.8 X10^3/uL (1.3-2.9); MEAN CORPUSCULAR HEMOGLOBIN 37.8 pg (27.0-34.0); MEAN CORPUSCULAR HGB CONC 34.7 g/dL (33.0-35.0); MEAN PLATELET VOLUME 10.9 fL (7.4-11.0); MONOCYTES # (AUTO) 0.3 x10^3/uL (0.3-0.8); MONOCYTES % (AUTO) 11.4 % (0.0-13.0); NEUTROPHILS # (AUTO) 1.6 x10^3/uL (2.2-4.8); NEUTROPHILS % (AUTO) 53.2 % (42.0-75.0); PLATELET COUNT 51 X10^3/uL (150.0-450.0); RED BLOOD COUNT 2.14 X10^6/uL (4.7-6.0); RED CELL DISTRIBUTION WIDTH 14.8 % (11.6-16.5); WHITE BLOOD COUNT 2.9 X10^3/uL (3.6-10.0)
--- NOTE | 2024-05-19 06:00 | RAD ---
EXAM: CHEST, 1 VIEW HISTORY: CHF; COMPARISON: 05/17/2024 FINDINGS: The cardiomediastinal silhouette is stable. Similar post sternotomy changes. Right-sided pacer and pacer wires unchanged. Similar residual left-sided pacer wires. No acute airspace disease. No pneumothorax or effusion. No acute osseous abnormality. IMPRESSION: No acute cardiopulmonary disease. THIS IS AN ELECTRONICALLY VERIFIED FINAL REPORT 05/19/2024 5:56 AM - Electronically signed by Keith Brandon MD
[2024-05-19 06:02] LABS: CALCIUM 8.1 mg/dL (8.5-10.1); CARBON DIOXIDE 24.4 mmol/L (21-32); COR CA(FOR HYPOALB) 9.7 mg/dL (8.5-10.1); CREATININE 4.78 mg/dL (0.70-1.30); POTASSIUM 4.1 mmol/L (3.5-5.1)
[2024-05-19 07:20] LABS: PLATELET MORPHOLOGY COMMENT NORMAL (NORMAL); TARGET CELLS SLIGHT
[2024-05-19] MEDS: LASIX IVP SCH (09:12)
[2024-05-19] MEDS: CONSULT PHARMACY - POTASSIUM & MAGNESIUM XX SCH (19:03)
[2024-05-19] MEDS: NS 250 ML IV 250 ML IV ONE (19:48)
[2024-05-20 05:11] LABS: BASOPHILS % (AUTO) 0.5 % (0.2-1.0); EOSINOPHILS # (AUTO) 0.2 x10^3/uL (0.0-0.2); EOSINOPHILS % (AUTO) 4.9 % (0.9-2.9); HEMATOCRIT 22.7 % (42.0-54.0); LYMPHOCYTES % (AUTO) 30.8 % (21.0-51.0); MEAN CORPUSCULAR HEMOGLOBIN 38.2 pg (27.0-34.0); MEAN CORPUSCULAR HGB CONC 35.4 g/dL (33.0-35.0); MEAN PLATELET VOLUME 10.4 fL (7.4-11.0); MONOCYTES # (AUTO) 0.4 x10^3/uL (0.3-0.8); MONOCYTES % (AUTO) 12.7 % (0.0-13.0); NEUTROPHILS # (AUTO) 1.6 x10^3/uL (2.2-4.8); NEUTROPHILS % (AUTO) 51.1 % (42.0-75.0); PLATELET COUNT 50 X10^3/uL (150.0-450.0); RED CELL DISTRIBUTION WIDTH 15.3 % (11.6-16.5); WHITE BLOOD COUNT 3.1 X10^3/uL (3.6-10.0)
[2024-05-20 05:19] LABS: ALBUMIN 1.9 g/dL (3.4-5.0); CALCIUM 8.1 mg/dL (8.5-10.1); CARBON DIOXIDE 24.5 mmol/L (21-32); COR CA(FOR HYPOALB) 9.8 mg/dL (8.5-10.1); CREATININE 4.83 mg/dL (0.70-1.30); POTASSIUM 4.1 mmol/L (3.5-5.1); TOTAL PROTEIN 5.8 g/dL (6.4-8.2)
[2024-05-20 05:47] LABS: ANISOCYTOSIS 1+; PLATELET MORPHOLOGY COMMENT NORMAL (NORMAL); TEAR DROP CELLS SLIGHT
[2024-05-20 09:45] LABS: FREE T4 (FREE THYROXINE) 1.12 ng/dL (0.76-1.46); TSH (3RD GENERATION) 11.563 uIU/mL (0.358-3.74)
[2024-05-20] MEDS: NS 1,000 ML IV 1,000 ML IV SCH (09:57)
[2024-05-20] MEDS: NS 100 ML IV 100 ML with VENOFER 400 MG IV ONE (10:05)
--- NOTE | 2024-05-20 11:20 | RAD ---
EXAM:CHEST, 1 VIEWHISTORY:chf;COMPARISON:Prior study or studies were utilized for comparison during interpretation with the most relevant dated yesterdayTECHNIQUE:CHEST, 1 VIEWFINDINGS:Chest:Lines and tubes: Right-sided pacemaker generator with lead or leads in satisfactory position. Abandoned left-sided pacemaker leads are noted.Mediastinum: Cardiomegaly.Pulmonary vessels: There is pulmonary vascular congestion.Lung hoang: No suspicious airspace opacity.Pleura: There is blunting of the left costophrenic angle. No pneumothorax.Bones and soft tissues: No acute osseous or soft tissue abnormality.IMPRESSION:1. Small left pleural effusion2. Findings suggest heart failureTHIS IS AN ELECTRONICALLY VERIFIED FINAL REPORT05/20/2024 11:18 AM - Electronically signed by Hayden Garcia MD
[2024-05-21] MEDS: SYNTHROID 150 mcg TAB PO SCH (05:34)
[2024-05-21] MEDS: KLOR-CON 10 MEQ TAB PO SCH (08:56)
[2024-05-21] MEDS: BACTROBAN TOPICAL OINT TOP SCH (08:56)
[2024-05-21] MEDS: LASIX IVP SCH (08:57)
[2024-05-21 09:34] LABS: BASOPHILS % (AUTO) 0.6 % (0.2-1.0); EOSINOPHILS # (AUTO) 0.2 x10^3/uL (0.0-0.2); EOSINOPHILS % (AUTO) 4.8 % (0.9-2.9); HEMATOCRIT 24.7 % (42.0-54.0); HEMOGLOBIN 8.5 g/dL (13.5-18.0); LYMPHOCYTES # (AUTO) 1.3 X10^3/uL (1.3-2.9); LYMPHOCYTES % (AUTO) 29.3 % (21.0-51.0); MEAN CORPUSCULAR HEMOGLOBIN 37.7 pg (27.0-34.0); MEAN CORPUSCULAR HGB CONC 34.3 g/dL (33.0-35.0); MEAN CORPUSCULAR VOLUME 109.8 fL (80.0-100.0); MEAN PLATELET VOLUME 10.7 fL (7.4-11.0); MONOCYTES # (AUTO) 0.3 x10^3/uL (0.3-0.8); MONOCYTES % (AUTO) 7.8 % (0.0-13.0); NEUTROPHILS # (AUTO) 2.5 x10^3/uL (2.2-4.8); NEUTROPHILS % (AUTO) 57.5 % (42.0-75.0); PLATELET COUNT 65 X10^3/uL (150.0-450.0); RED BLOOD COUNT 2.25 X10^6/uL (4.7-6.0); RED CELL DISTRIBUTION WIDTH 15.1 % (11.6-16.5); WHITE BLOOD COUNT 4.4 X10^3/uL (3.6-10.0)
[2024-05-21 09:48] LABS: CALCIUM 8.1 mg/dL (8.5-10.1); CARBON DIOXIDE 22.5 mmol/L (21-32); COR CA(FOR HYPOALB) 9.7 mg/dL (8.5-10.1); CREATININE 4.78 mg/dL (0.70-1.30); POTASSIUM 4.4 mmol/L (3.5-5.1); TOTAL PROTEIN 6.1 g/dL (6.4-8.2)
[2024-05-21 10:07] LABS: PLATELET MORPHOLOGY COMMENT NORMAL (NORMAL)
[2024-05-21] MEDS: AQUAPHOR TOP SCH (11:13)
[2024-05-21] MEDS: NYSTATIN OINT TOP SCH (11:14)
[2024-05-22 06:42] LABS: BASOPHILS % (AUTO) 0.9 % (0.2-1.0); EOSINOPHILS # (AUTO) 0.2 x10^3/uL (0.0-0.2); HEMATOCRIT 21.8 % (42.0-54.0); HEMOGLOBIN 7.5 g/dL (13.5-18.0); LYMPHOCYTES # (AUTO) 1.1 X10^3/uL (1.3-2.9); LYMPHOCYTES % (AUTO) 30.7 % (21.0-51.0); MEAN CORPUSCULAR HEMOGLOBIN 37.6 pg (27.0-34.0); MEAN CORPUSCULAR HGB CONC 34.4 g/dL (33.0-35.0); MEAN CORPUSCULAR VOLUME 109.2 fL (80.0-100.0); MEAN PLATELET VOLUME 9.4 fL (7.4-11.0); MONOCYTES # (AUTO) 0.3 x10^3/uL (0.3-0.8); MONOCYTES % (AUTO) 9.5 % (0.0-13.0); NEUTROPHILS # (AUTO) 1.9 x10^3/uL (2.2-4.8); NEUTROPHILS % (AUTO) 53.9 % (42.0-75.0); PLATELET COUNT 54 X10^3/uL (150.0-450.0); RED BLOOD COUNT 1.99 X10^6/uL (4.7-6.0); WHITE BLOOD COUNT 3.6 X10^3/uL (3.6-10.0)
[2024-05-22 06:54] LABS: ALBUMIN 1.7 g/dL (3.4-5.0); CARBON DIOXIDE 21.5 mmol/L (21-32); COR CA(FOR HYPOALB) 9.8 mg/dL (8.5-10.1); CREATININE 5.08 mg/dL (0.70-1.30); MAGNESIUM 2.5 mg/dL (2.0-2.9); POTASSIUM 4.5 mmol/L (3.5-5.1); TOTAL PROTEIN 5.5 g/dL (6.4-8.2)
[2024-05-22 07:00] LABS: PLATELET MORPHOLOGY COMMENT NORMAL (NORMAL)
[2024-05-22] MEDS: NS 1,000 ML IV 1,000 ML IV SCH (08:30)
[2024-05-22] MEDS: NS 250 ML IV 200 ML IV ONE (08:30)
--- NOTE | 2024-05-22 08:37 | RAD ---
EXAM:AP chestHISTORY:CHFCOMPARISON:05/12/2024 r.br.br.br of AICD. Sternal wires are present. There is slight prominence of the central vascularity without definite CHF/edema, pneumonia or pleural effusion.IMPRESSION:No convincing evidence for pneumonia or [place] CHF. See above.THIS IS AN ELECTRONICALLY VERIFIED FINAL REPORT05/22/2024 8:34 AM - Electronically signed by Al Rodriguez MD
--- NOTE | 2024-05-22 14:42 | RAD ---
EXAM:CHEST, 1 VIEWHISTORY:SOB;COMPARISON:Prior study or studies were utilized for comparison during interpretation with the most relevant dated yesterdayTECHNIQUE:CHEST, 1 VIEWFINDINGS:Chest:Lines and tubes: Right-sided pacemaker generator with lead or leads in satisfactory position. Left-sided pacemaker leads are abandoned.Mediastinum: Median sternotomy wires are present. Cardiac shadow is normal in size.Pulmonary vessels: Pulmonary vasculature is prominent.Lung hoang: No suspicious airspace opacity.Pleura: No effusion. No pneumothorax.Bones and soft tissues: No acute osseous or soft tissue abnormality.IMPRESSION:1. Findings suggest heart failureTHIS IS AN ELECTRONICALLY VERIFIED FINAL REPORT05/22/2024 2:32 PM - Electronically signed by Hayden Garcia MD
[2024-05-22] MEDS: LASIX IVP ONE (17:35)
[2024-05-23 05:40] LABS: BASOPHILS # (AUTO) 0.1 X10^3/uL (0.0-0.1); EOSINOPHILS # (AUTO) 0.1 x10^3/uL (0.0-0.2); EOSINOPHILS % (AUTO) 3.8 % (0.9-2.9); HEMATOCRIT 20.8 % (42.0-54.0); LYMPHOCYTES # (AUTO) 1.2 X10^3/uL (1.3-2.9); LYMPHOCYTES % (AUTO) 33.6 % (21.0-51.0); MONOCYTES # (AUTO) 0.2 x10^3/uL (0.3-0.8); RED BLOOD COUNT 1.91 X10^6/uL (4.7-6.0)
[2024-05-23 05:47] LABS: BASOPHILS % (AUTO) 1.9 % (0.2-1.0); HEMOGLOBIN 7.3 g/dL (13.5-18.0); MEAN CORPUSCULAR HGB CONC 34.9 g/dL (33.0-35.0); MEAN CORPUSCULAR VOLUME 108.9 fL (80.0-100.0); MEAN PLATELET VOLUME 9.9 fL (7.4-11.0); NEUTROPHILS % (AUTO) 55.7 % (42.0-75.0); PLATELET COUNT 59 X10^3/uL (150.0-450.0); RED CELL DISTRIBUTION WIDTH 15.1 % (11.6-16.5); WHITE BLOOD COUNT 3.6 X10^3/uL (3.6-10.0)
[2024-05-23 05:50] LABS: ALBUMIN 1.8 g/dL (3.4-5.0); COR CA(FOR HYPOALB) 9.8 mg/dL (8.5-10.1); CREATININE 5.75 mg/dL (0.70-1.30); TOTAL PROTEIN 5.7 g/dL (6.4-8.2)
[2024-05-23 06:23] LABS: PLATELET MORPHOLOGY COMMENT NORMAL (NORMAL)
--- NOTE | 2024-05-23 07:11 | RAD ---
EXAM:CHEST, 1 VIEWHISTORY:SOB, EDEMA; PA, CAD, HTN, DM, CHF SX: AAA REPAIR, ABD, ANGIO/STENTS, LITHOTRIPSYCOMPARISON:Prior study or studies were utilized for comparison during interpretation with the most relevant dated yesterdayTECHNIQUE:CHEST, 1 VIEWFINDINGS:Chest:Lines and tubes: Right-sided pacemaker generator with lead or leads in satisfactory position. There are abandoned left pacemaker leads. Cardiac leads overlie the chestMediastinum: Median sternotomy wires are present. Cardiac shadow is normal in size.Pulmonary vessels: Pulmonary vasculature is prominent.Lung hoang: No suspicious airspace opacity.Pleura: No effusion. No pneumothorax.Bones and soft tissues: No acute osseous or soft tissue abnormality.IMPRESSION:1. Improving aeration of the lungs compared to yesterdayTHIS IS AN ELECTRONICALLY VERIFIED FINAL REPORT05/23/2024 7:07 AM - Electronically signed by Hayden Garcia MD
[2024-05-23] MEDS: LASIX IVP ONE (08:13)
[2024-05-23] MEDS: NS 1,000 ML IV 1,000 ML IV SCH (08:27)
--- NOTE | 2024-05-23 09:04 | RAD ---
EXAMINATION:CHEST, 1 VIEWHISTORY:SOB, EDEMA; .COMPARISON STUDY:05/23/2024 at 0427 hoursTECHNIQUE:One viewFINDINGS:Previous median sternotomy. Right-sided AICD device with leads in satisfactory position. Wires from previous left-sided AICD. Mild cardiomegaly. There is a trace pleural fluid on the left with atelectasis. No acute infiltrates. No pneumothorax. Hilar and mediastinal structures and bony structures unchanged. EKG leads are present.IMPRESSION:Trace pleural fluid on the left with atelectasis.No acute infiltrates. Follow-up recommendedTHIS IS AN ELECTRONICALLY VERIFIED FINAL REPORT05/23/2024 9:01 AM - Electronically signed by Juan Macrh MD
[2024-05-23] MEDS: ALBUMIN HUMAN 25%- 100 ML 100 ML IV SCH (09:56)
[2024-05-23] MEDS: PATIENT'S HOME MEDICATION TOP SCH (09:56)
[2024-05-23] MEDS: LASIX ONE (10:53)
[2024-05-23] MEDS: LASIX IVP SCH (11:36)
[2024-05-24 05:56] LABS: EOSINOPHILS # (AUTO) 0.1 x10^3/uL (0.0-0.2); MONOCYTES # (AUTO) 0.2 x10^3/uL (0.3-0.8); NEUTROPHILS # (AUTO) 1.5 x10^3/uL (2.2-4.8)
[2024-05-24 06:02] LABS: BASOPHILS % (AUTO) 0.8 % (0.2-1.0); EOSINOPHILS % (AUTO) 4.4 % (0.9-2.9); HEMATOCRIT 20.1 % (42.0-54.0); LYMPHOCYTES % (AUTO) 35.9 % (21.0-51.0); MEAN CORPUSCULAR HEMOGLOBIN 37.6 pg (27.0-34.0); MEAN CORPUSCULAR HGB CONC 34.6 g/dL (33.0-35.0); MEAN CORPUSCULAR VOLUME 108.5 fL (80.0-100.0); MEAN PLATELET VOLUME 9.9 fL (7.4-11.0); MONOCYTES % (AUTO) 5.9 % (0.0-13.0); PLATELET COUNT 51 X10^3/uL (150.0-450.0); RED BLOOD COUNT 1.85 X10^6/uL (4.7-6.0); RED CELL DISTRIBUTION WIDTH 15.3 % (11.6-16.5); WHITE BLOOD COUNT 2.8 X10^3/uL (3.6-10.0)
[2024-05-24 06:15] LABS: ALBUMIN 2.5 g/dL (3.4-5.0); CALCIUM 8.5 mg/dL (8.5-10.1); CARBON DIOXIDE 17.1 mmol/L (21-32); COR CA(FOR HYPOALB) 9.7 mg/dL (8.5-10.1); CREATININE 6.22 mg/dL (0.70-1.30); MAGNESIUM 2.6 mg/dL (2.0-2.9); TOTAL PROTEIN 6.2 g/dL (6.4-8.2)
[2024-05-24 06:16] LABS: POTASSIUM 5.3 mmol/L (3.5-5.1)
[2024-05-24 06:48] LABS: PLATELET MORPHOLOGY COMMENT NORMAL (NORMAL)
--- NOTE | 2024-05-24 11:16 | PCM.PROG ---
Progress Note Progress Note for Day of Date of Exam: 05/24/24 Subjective Subjective: Patient seen at bedside, no acute events overnight. He us currently admitted for UTI, bacteremia, generalized weakness and end stage renal failure. Patient's renal function is declining. He refused dialysis. He is being treated with gentle hydration, prn lasix and antibiotics. His Hgb is 7.0 this morning. Family states patient appears more weak and tired. He did not eat much this morning. Labs/imaging reviewed: -WBC 2.8 Hgb 7.0 Plt 51 BUN/Cr 130/6.22 K 5.3 -CXR: trace pleural fluid, left atelectasis Plan: will transfuse 2 units PRBCs, monitor H&H. Continue current treatment and ICU care and telemetry. Continue current medications. Replace electrolytes as needed. Patient has refused dialysis. Monitor I&Os. Wean O2 as tolerated. Continue antibiotics. Possible discharge with hospice on Sunday. Monitor AM labs/imaging. Time spent for clinical assessment, reviewing labs/imaging, physical exam, decision making and documentation greater than 45 mins. Past Medical Family Social History Allergies: Allergies codeine Allergy (Verified 05/15/24 16:53) Vital Signs and I&O's Vital Signs: Vital Signs Temperature 97.5 F Pulse Rate 60 Pulse Rate 60 Pulse Rate 60 Respiratory Rate 13 Respiratory Rate 11 Respiratory Rate 10 Blood Pressure 122/59 Blood Pressure 103/52 Blood Pressure 105/53 O2 Sat by Pulse Oximetry 95 O2 Sat by Pulse Oximetry 95 O2 Sat by Pulse Oximetry 94 Intake and Output: Intake & Output 05/21/24 05/22/24 05/23/24 05/24/24 23:59 23:59 23:59 23:59 Intake Total 2619 / 2619 2595 / 2595 1624 / 1624 427 / 427 Output Total 750 / 750 350 / 350 250 / 250 Balance 1869 / 1869 2245 / 2245 1374 / 1374 427 / 427 Physical Exam Oriented: Normal Eyes: Normal Ear: Normal Nose: Normal Throat: Dry Respiratory: Generalized and Diminished Cardiovascular: Edema and Other (pacemaker palpable ) Auscultation: Bowel Sounds: Normal Tenderness: Normal Skin: Decreased Turgur Musculoskeletal: Motor Deficit Psychiatric: Normal Mood Description: Calm Affect: Normal Speech Pattern: Clear and Appropriate Laboratory and Diagnostics 05/24/24 04:58 05/24/24 04:58 Labs: 05/17/24 10:33 Blood Blood Culture - Final 05/17/24 10:25 Blood Blood Culture - Final 05/15/24 22:08 Urine,Catheterized Urine Culture - Final Enterococcus Faecalis 05/15/24 21:00 Blood Blood Culture Gram Stain - Final 05/15/24 21:00 Blood Blood Culture - Final Enterococcus Faecalis 05/15/24 17:58 Blood Blood Culture Gram Stain - Final 05/15/24 17:58 Blood Blood Culture - Final Enterococcus Faecalis 05/15/24 17:20 Urine,Clean Catch Urine Culture - Final Enterococcus Faecalis Laboratory WBC 2.8 X10^3/uL (3.6-10.0) L 05/24/24 04:58 RBC 1.85 X10^6/uL (4.7-6.0) L 05/24/24 04:58 Hgb 7.0 g/dL (13.5-18.0) L* 05/24/24 04:58 Hct 20.1 % (42.0-54.0) L 05/24/24 04:58 MCV 108.5 fL (80.0-100.0) H 05/24/24 04:58 MCH 37.6 pg (27.0-34.0) H 05/24/24 04:58 MCHC 34.6 g/dL (33.0-35.0) 05/24/24 04:58 RDW 15.3 % (11.6-16.5) 05/24/24 04:58 Plt Count 51 X10^3/uL (150.0-450.0) L 05/24/24 04:58 Plt Count Comment Decreased (ADEQUATE) 05/24/24 04:58 MPV 9.9 fL (7.4-11.0) 05/24/24 04:58 Neut % (Auto) 53.0 % (42.0-75.0) 05/24/24 04:58 Lymph % (Auto) 35.9 % (21.0-51.0) 05/24/24 04:58 [place] % (Auto) 5.9 % (0.0-13.0) 05/24/24 04:58 Eos % (Auto) 4.4 % (0.9-2.9) H 05/24/24 04:58 Baso % (Auto) 0.8 % (0.2-1.0) 05/24/24 04:58 Neut # (Auto) 1.5 x10^3/uL (2.2-4.8) L 05/24/24 04:58 Lymph # (Auto) 1.0 X10^3/uL (1.3-2.9) L 05/24/24 04:58 [place] # (Auto) 0.2 x10^3/uL (0.3-0.8) L 05/24/24 04:58 Eos # (Auto) 0.1 x10^3/uL (0.0-0.2) 05/24/24 04:58 Baso # (Auto) 0.0 X10^3/uL (0.0-0.1) 05/24/24 04:58 Absolute Nucleated RBC 0.2 /100WBC 05/24/24 04:58 Total Counted 100 05/18/24 04:18 Neutrophils % (Manual) 52 % (39-76) 05/18/24 04:18 Lymphocytes % (Manual) 29 % (13-43) 05/18/24 04:18 Monocytes % (Manual) 13 % (4-9) H 05/18/24 04:18 Eosinophils % (Manual) 6 % (0-6) 05/18/24 04:18 Plt Morphology Comment Normal (NORMAL) 05/24/24 04:58 RBC Morphology Abnormal (NORMAL) 05/24/24 04:58 Anisocytosis 1+ A 05/20/24 04:45 Macrocytosis 1+ A 05/24/24 04:58 Target Cells Slight A 05/19/24 05:14 Tear Drop Cells Slight 05/20/24 04:45 Absolute Retic 0.0408 10^6/uL 05/16/24 04:15 Percent Retic 1.77 % (0.8-2.2) 05/16/24 04:15 Sodium 126 mmol/L (136-145) L 05/24/24 04:58 Corrected Sodium 127 mmol/L (136-145) L 05/24/24 04:58 Potassium 5.3 mmol/L (3.5-5.1) H 05/24/24 04:58 Chloride 94 mmol/L (98-107) L 05/24/24 04:58 Carbon Dioxide 17.1 mmol/L (21-32) L 05/24/24 04:58 BUN 130 mg/dL (7-18) H 05/24/24 04:58 Creatinine 6.22 mg/dL (0.70-1.30) H 05/24/24 04:58 Est GFR (MDRD) Af Amer 11 (>60) L 05/24/24 04:58 Est GFR (MDRD) Non-Af 9 (>60) L 05/24/24 04:58 Glucose 157 mg/dL (65-99) H 05/24/24 04:58 POC Glucose (mg/dL) 180 mg/dL (65-99) H 05/24/24 10:50 Hemoglobin A1c 6.8 % 05/16/24 04:15 Lactic Acid 1.7 mmol/L (0.4-2.0) 05/15/24 21:00 Calcium 8.5 mg/dL (8.5-10.1) 05/24/24 04:58 Corrected Calcium 9.7 mg/dL (8.5-10.1) 05/24/24 04:58 Magnesium 2.6 mg/dL (2.0-2.9) 05/24/24 04:58 Iron 18 ug/dL (50-175) L 05/16/24 04:15 TIBC 221 ug/dL (250-450) L 05/16/24 04:15 Transferrin 171 mg/dL (202-364) L 05/16/24 04:15 Ferritin 323 ng/mL (26-388) 05/16/24 04:15 Total Bilirubin 1.40 mg/dL (0.2-1.0) H 05/24/24 04:58 AST 51 Units/L (15-37) H 05/24/24 04:58 ALT 45 Units/L (12-78) 05/24/24 04:58 Alkaline Phosphatase 248 Units/L (46-116) H 05/24/24 04:58 B-Natriuretic Peptide 2290 pg/mL (0-79) H 05/16/24 04:15 Total Protein 6.2 g/dL (6.4-8.2) L 05/24/24 04:58 Albumin 2.5 g/dL (3.4-5.0) L 05/24/24 04:58 Globulin 3.7 g/dL (2.5-4.5) 05/24/24 04:58 Albumin/Globulin Ratio 0.7 Ratio (1.1-2.1) L 05/24/24 04:58 Vitamin B12 963 pg/mL (193-986) 05/16/24 04:15 Folate 9.2 ng/mL (>8.6) 05/16/24 04:15 Free T4 1.12 ng/dL (0.76-1.46) 05/20/24 04:45 TSH 3rd Generation 11.563 uIU/mL (0.358-3.74) H 05/20/24 04:45 Specimen Type Catherized urine 05/15/24 22:08 Urine Color Yellow (YELLOW) 05/15/24 22:08 Urine Appearance Clear (CLEAR) 05/15/24 22:08 Urine pH 6.0 (5.0 - 8.0) 05/15/24 22:08 Ur Specific [place] 1.010 (1.000-1.030) 05/15/24 22:08 Urine Protein Negative (NEGATIVE) 05/15/24 22:08 Urine Glucose (UA) 3+ (NEGATIVE) 05/15/24 22:08 Urine Ketones Negative (NEGATIVE) 05/15/24 22:08 Urine Blood Negative (NEGATIVE) 05/15/24 22:08 Urine Nitrite Negative (NEGATIVE) 05/15/24 22:08 Urine Bilirubin Negative (NEGATIVE) 05/15/24 22:08 Urine Urobilinogen Normal (NORMAL) 05/15/24 22:08 Ur Leukocyte Esterase 1+ (NEGATIVE) 05/15/24 22:08 Urine RBC 0-2 /HPF (0-3) 05/15/24 22:08 Urine WBC 10-20 /HPF (0-5) A 05/15/24 22:08 Ur Squamous Epith Cells Rare /HPF (NEGATIVE) 05/15/24 22:08 Urine Bacteria 2+ /HPF (NEGATIVE) 05/15/24 22:08 Hyaline Casts Rare /LPF (NEGATIVE) 05/15/24 22:08 Ur Culture Indicated? Yes/culture set up 05/15/24 22:08 Stl Occult Blood (IFOB) Negative (NEGATIVE) 05/17/24 03:47 SARS-CoV-2 (PCR) Negative (NEGATIVE) 05/15/24 20:52 Influenza Type A (PCR) Negative (NEGATIVE) 05/15/24 20:52 Influenza Type B (PCR) Negative (NEGATIVE) 05/15/24 20:52 RSV (PCR) Negative (NEGATIVE) 05/15/24 20:52 Plan (1) UTI (urinary tract infection): Status: Acute Qualifiers: Urinary tract infection type: acute cystitis Hematuria presence: without hematuria Qualified Code(s): N30.00 - Acute cystitis without hematuria Plan: (2) Acute on chronic kidney failure: Status: Acute Qualifiers: Chronic kidney disease stage: stage 5 (GFR < 15), not on chronic dialysis Acute renal failure type: unspecified Qualified Code(s): N17.9 - Acute kidney failure, unspecified; N18.5 - Chronic kidney disease, stage 5 (3) CHF (congestive heart failure): Status: Chronic Qualifiers: Heart failure type: unspecified Heart failure chronicity: unspecified Qualified Code(s): I50.9 - Heart failure, unspecified (4) CAD (coronary artery disease): Status: Chronic Qualifiers: Coronary Disease-Associated Artery/Lesion type: unspecified vessel or lesion type [place] vs. transplanted heart: [place] heart Associated angina: without angina Qualified Code(s): I25.10 - Atherosclerotic heart disease of [place] coronary artery without angina pectoris (5) Adult failure to thrive: Status: Acute (6) Bacteremia: Status: Acute (7) End stage renal disease: Status: Chronic
[2024-05-24 15:32] LABS: HEMATOCRIT 20.5 % (42.0-54.0)
[2024-05-25 07:04] LABS: BASOPHILS % (AUTO) 0.9 % (0.2-1.0); EOSINOPHILS # (AUTO) 0.1 x10^3/uL (0.0-0.2); MONOCYTES # (AUTO) 0.2 x10^3/uL (0.3-0.8); NEUTROPHILS % (AUTO) 62.6 % (42.0-75.0)
[2024-05-25] MEDS: NS 500 ML IV 500 ML IV ONE (07:06)
[2024-05-25 07:12] LABS: EOSINOPHILS % (AUTO) 3.5 % (0.9-2.9); HEMATOCRIT 20.3 % (42.0-54.0); HEMOGLOBIN 7.1 g/dL (13.5-18.0); LYMPHOCYTES % (AUTO) 27.6 % (21.0-51.0); MEAN CORPUSCULAR HEMOGLOBIN 37.9 pg (27.0-34.0); MEAN CORPUSCULAR HGB CONC 35.1 g/dL (33.0-35.0); MEAN CORPUSCULAR VOLUME 107.9 fL (80.0-100.0); MEAN PLATELET VOLUME 9.8 fL (7.4-11.0); MONOCYTES % (AUTO) 5.4 % (0.0-13.0); NEUTROPHILS # (AUTO) 2.3 x10^3/uL (2.2-4.8); PLATELET COUNT 54 X10^3/uL (150.0-450.0); RED BLOOD COUNT 1.88 X10^6/uL (4.7-6.0); RED CELL DISTRIBUTION WIDTH 15.1 % (11.6-16.5); WHITE BLOOD COUNT 3.7 X10^3/uL (3.6-10.0)
[2024-05-25 07:16] LABS: ALBUMIN 2.4 g/dL (3.4-5.0); CALCIUM 8.6 mg/dL (8.5-10.1); CARBON DIOXIDE 16.3 mmol/L (21-32); COR CA(FOR HYPOALB) 9.9 mg/dL (8.5-10.1); CREATININE 6.32 mg/dL (0.70-1.30); POTASSIUM 5.7 mmol/L (3.5-5.1); TOTAL PROTEIN 6.1 g/dL (6.4-8.2)
[2024-05-25 07:47] LABS: PLATELET MORPHOLOGY COMMENT NORMAL (NORMAL)
--- NOTE | 2024-05-25 11:01 | PCM.PROG ---
Progress Note Progress Note for Day of Date of Exam: 05/25/24 Subjective Subjective: Patient seen at bedside, no acute events overnight. His temp continued to be low yesterday, initially 94 so bear hugger was applied. He has been wearing it off and on. His last temp is 97.6. Blood transfusion was not given yesterday due to low temp. Repeat Hgb was 7.0 yesterday afternoon and this morning it is 7.1. He us currently admitted for UTI, bacteremia, generalized weakness and end stage renal failure. He is feeling about the same. Labs/imaging reviewed: -WBC 3.7 Hgb 7.1 Plt 54 BUN/Cr 133/6.32 K 5.7 -CXR: trace pleural fluid, left atelectasis Plan: Monitor temp. Monitor H&H. Continue current treatment and ICU care and telemetry. Continue current medications. Will add Kayexalate. Replace electrolytes as needed. Patient has refused dialysis. Monitor I&Os. Wean O2 as t olerated. Continue antibiotics. Possible discharge with hospice on Sunday. Monitor AM labs/imaging. Time spent for clinical assessment, reviewing labs/imaging, physical exam, decision making and documentation greater than 45 mins. Past Medical Family Social History Allergies: Allergies codeine Allergy (Verified 05/15/24 16:53) Vital Signs and I&O's Vital Signs: Vital Signs Temperature 97.8 F Temperature 97.6 F Temperature 97.2 F Pulse Rate 60 Pulse Rate 60 Pulse Rate 60 Pulse Rate 60 Pulse Rate 60 Pulse Rate 60 Pulse Rate 60 Respiratory Rate 17 Respiratory Rate 14 Respiratory Rate 14 Respiratory Rate 18 Respiratory Rate 12 Respiratory Rate 19 Respiratory Rate 14 Blood Pressure 99/50 Blood Pressure 107/53 Blood Pressure 102/51 Blood Pressure 104/55 Blood Pressure 105/51 Blood Pressure 100/49 Blood Pressure 101/49 O2 Sat by Pulse Oximetry 93 O2 Sat by Pulse Oximetry 92 O2 Sat by Pulse Oximetry 92 O2 Sat by Pulse Oximetry 92 O2 Sat by Pulse Oximetry 94 O2 Sat by Pulse Oximetry 95 O2 Sat by Pulse Oximetry 95 Intake and Output: Intake & Output 05/22/24 05/23/24 05/24/24 05/25/24 23:59 23:59 23:59 23:59 Intake Total 2595 / 2595 1624 / 1624 1448 / 1448 1000 / 1000 Output Total 350 / 350 250 / 250 200 / 200 300 / 300 Balance 2245 / 2245 1374 / 1374 1248 / 1248 700 / 700 Physical Exam Oriented: Normal Eyes: Normal Ear: Normal Nose: Normal Throat: Dry Respiratory: Generalized and Diminished Cardiovascular: Edema and Other (pacemaker palpable ) Auscultation: Bowel Sounds: Normal Palpation: Normal Tenderness: Normal Skin: Decreased Turgur Musculoskeletal: Motor Deficit Psychiatric: Normal Mood Description: Calm Affect: Normal Speech Pattern: Clear and Appropriate Laboratory and Diagnostics 05/25/24 06:40 05/25/24 06:40 Labs: 05/17/24 10:33 Blood Blood Culture - Final 05/17/24 10:25 Blood Blood Culture - Final 05/15/24 22:08 Urine,Catheterized Urine Culture - Final Enterococcus Faecalis 05/15/24 21:00 Blood Blood Culture Gram Stain - Final 05/15/24 21:00 Blood Blood Culture - Final Enterococcus Faecalis 05/15/24 17:58 Blood Blood Culture Gram Stain - Final 05/15/24 17:58 Blood Blood Culture - Final Enterococcus Faecalis 05/15/24 17:20 Urine,Clean Catch Urine Culture - Final Enterococcus Faecalis Laboratory WBC 3.7 X10^3/uL (3.6-10.0) 05/25/24 06:40 RBC 1.88 X10^6/uL (4.7-6.0) L 05/25/24 06:40 Hgb 7.1 g/dL (13.5-18.0) L 05/25/24 06:40 Hct 20.3 % (42.0-54.0) L 05/25/24 06:40 MCV 107.9 fL (80.0-100.0) H 05/25/24 06:40 MCH 37.9 pg (27.0-34.0) H 05/25/24 06:40 MCHC 35.1 g/dL (33.0-35.0) H 05/25/24 06:40 RDW 15.1 % (11.6-16.5) 05/25/24 06:40 Plt Count 54 X10^3/uL (150.0-450.0) L 05/25/24 06:40 Plt Count Comment Decreased (ADEQUATE) 05/25/24 06:40 MPV 9.8 fL (7.4-11.0) 05/25/24 06:40 Neut % (Auto) 62.6 % (42.0-75.0) 05/25/24 06:40 Lymph % (Auto) 27.6 % (21.0-51.0) 05/25/24 06:40 [place] % (Auto) 5.4 % (0.0-13.0) 05/25/24 06:40 Eos % (Auto) 3.5 % (0.9-2.9) H 05/25/24 06:40 Baso % (Auto) 0.9 % (0.2-1.0) 05/25/24 06:40 Neut # (Auto) 2.3 x10^3/uL (2.2-4.8) 05/25/24 06:40 Lymph # (Auto) 1.0 X10^3/uL (1.3-2.9) L 05/25/24 06:40 [place] # (Auto) 0.2 x10^3/uL (0.3-0.8) L 05/25/24 06:40 Eos # (Auto) 0.1 x10^3/uL (0.0-0.2) 05/25/24 06:40 Baso # (Auto) 0.0 X10^3/uL (0.0-0.1) 05/25/24 06:40 Absolute Nucleated RBC 0.1 /100WBC 05/25/24 06:40 Total Counted 100 05/18/24 04:18 Neutrophils % (Manual) 52 % (39-76) 05/18/24 04:18 Lymphocytes % (Manual) 29 % (13-43) 05/18/24 04:18 Monocytes % (Manual) 13 % (4-9) H 05/18/24 04:18 Eosinophils % (Manual) 6 % (0-6) 05/18/24 04:18 Plt Morphology Comment Normal (NORMAL) 05/25/24 06:40 RBC Morphology Abnormal (NORMAL) 05/25/24 06:40 Anisocytosis 1+ A 05/20/24 04:45 Macrocytosis 1+ A 05/25/24 06:40 Target Cells Slight A 05/19/24 05:14 Tear Drop Cells Slight 05/20/24 04:45 Absolute Retic 0.0408 10^6/uL 05/16/24 04:15 Percent Retic 1.77 % (0.8-2.2) 05/16/24 04:15 Sodium 124 mmol/L (136-145) L* 05/25/24 06:40 Corrected Sodium 125 mmol/L (136-145) L 05/25/24 06:40 Potassium 5.7 mmol/L (3.5-5.1) H 05/25/24 06:40 Chloride 93 mmol/L (98-107) L 05/25/24 06:40 Carbon Dioxide 16.3 mmol/L (21-32) L 05/25/24 06:40 BUN 133 mg/dL (7-18) H 05/25/24 06:40 Creatinine 6.32 mg/dL (0.70-1.30) H 05/25/24 06:40 Est GFR (MDRD) Af Amer 11 (>60) L 05/25/24 06:40 Est GFR (MDRD) Non-Af 9 (>60) L 05/25/24 06:40 Glucose 150 mg/dL (65-99) H 05/25/24 06:40 POC Glucose (mg/dL) 153 mg/dL (65-99) H 05/25/24 04:52 Hemoglobin A1c 6.8 % 05/16/24 04:15 Lactic Acid 1.7 mmol/L (0.4-2.0) 05/15/24 21:00 Calcium 8.6 mg/dL (8.5-10.1) 05/25/24 06:40 Corrected Calcium 9.9 mg/dL (8.5-10.1) 05/25/24 06:40 Magnesium 2.6 mg/dL (2.0-2.9) 05/24/24 04:58 Iron 18 ug/dL (50-175) L 05/16/24 04:15 TIBC 221 ug/dL (250-450) L 05/16/24 04:15 Transferrin 171 mg/dL (202-364) L 05/16/24 04:15 Ferritin 323 ng/mL (26-388) 05/16/24 04:15 Total Bilirubin 1.60 mg/dL (0.2-1.0) H 05/25/24 06:40 AST 45 Units/L (15-37) H 05/25/24 06:40 ALT 42 Units/L (12-78) 05/25/24 06:40 Alkaline Phosphatase 239 Units/L (46-116) H 05/25/24 06:40 B-Natriuretic Peptide 2290 pg/mL (0-79) H 05/16/24 04:15 Total Protein 6.1 g/dL (6.4-8.2) L 05/25/24 06:40 Albumin 2.4 g/dL (3.4-5.0) L 05/25/24 06:40 Globulin 3.7 g/dL (2.5-4.5) 05/25/24 06:40 Albumin/Globulin Ratio 0.6 Ratio (1.1-2.1) L 05/25/24 06:40 Vitamin B12 963 pg/mL (193-986) 05/16/24 04:15 Folate 9.2 ng/mL (>8.6) 05/16/24 04:15 Free T4 1.12 ng/dL (0.76-1.46) 05/20/24 04:45 TSH 3rd Generation 11.563 uIU/mL (0.358-3.74) H 05/20/24 04:45 Specimen Type Catherized urine 05/15/24 22:08 Urine Color Yellow (YELLOW) 05/15/24 22:08 Urine Appearance Clear (CLEAR) 05/15/24 22:08 Urine pH 6.0 (5.0 - 8.0) 05/15/24 22:08 Ur Specific [place] 1.010 (1.000-1.030) 05/15/24 22:08 Urine Protein Negative (NEGATIVE) 05/15/24 22:08 Urine Glucose (UA) 3+ (NEGATIVE) 05/15/24 22:08 Urine Ketones Negative (NEGATIVE) 05/15/24 22:08 Urine Blood Negative (NEGATIVE) 05/15/24 22:08 Urine Nitrite Negative (NEGATIVE) 05/15/24 22:08 Urine Bilirubin Negative (NEGATIVE) 05/15/24 22:08 Urine Urobilinogen Normal (NORMAL) 05/15/24 22:08 Ur Leukocyte Esterase 1+ (NEGATIVE) 05/15/24 22:08 Urine RBC 0-2 /HPF (0-3) 05/15/24 22:08 Urine WBC 10-20 /HPF (0-5) A 05/15/24 22:08 Ur Squamous Epith Cells Rare /HPF (NEGATIVE) 05/15/24 22:08 Urine Bacteria 2+ /HPF (NEGATIVE) 05/15/24 22:08 Hyaline Casts Rare /LPF (NEGATIVE) 05/15/24 22:08 Ur Culture Indicated? Yes/culture set up 05/15/24 22:08 Stl Occult Blood (IFOB) Negative (NEGATIVE) 05/17/24 03:47 SARS-CoV-2 (PCR) Negative (NEGATIVE) 05/15/24 20:52 Influenza Type A (PCR) Negative (NEGATIVE) 05/15/24 20:52 Influenza Type B (PCR) Negative (NEGATIVE) 05/15/24 20:52 RSV (PCR) Negative (NEGATIVE) 05/15/24 20:52 Blood Type A POSITIVE 05/24/24 12:22 Antibody Screen Negative 05/24/24 12:22 Crossmatch See Detail 05/24/24 12:22 Plan (1) UTI (urinary tract infection): Status: Acute Qualifiers: Hematuria presence: without hematuria Urinary tract infection type: acute cystitis Qualified Code(s): N30.00 - Acute cystitis without hematuria Plan: (2) Acute on chronic kidney failure: Status: Acute Qualifiers: Acute renal failure type: unspecified Chronic kidney disease stage: stage 5 (GFR < 15), not on chronic dialysis Qualified Code(s): N17.9 - Acute kidney failure, unspecified; N18.5 - Chronic kidney disease, stage 5 (3) CHF (congestive heart failure): Status: Chronic Qualifiers: Heart failure chronicity: unspecified Heart failure type: unspecified Qualified Code(s): I50.9 - Heart failure, unspecified (4) CAD (coronary artery disease): Status: Chronic Qualifiers: Associated angina: without angina Coronary Disease-Associated Artery/Lesion type: unspecified vessel or lesion type [place] vs. transplanted heart: [place] heart Qualified Code(s): I25.10 - Atherosclerotic heart disease of [place] coronary artery without angina pectoris (5) Adult failure to thrive: Status: Acute (6) Bacteremia: Status: Acute (7) End stage renal disease: Status: Chronic (8) Anemia: Status: Chronic Qualifiers: Anemia type: unspecified type Qualified Code(s): D64.9 - Anemia, unspecified (9) Hyperkalemia: Status: Acute
[2024-05-25] MEDS: KAYEXALATE SUSP PO SCH (11:32)
[2024-05-26 07:00] LABS: BASOPHILS % (AUTO) 0.5 % (0.2-1.0); EOSINOPHILS # (AUTO) 0.2 x10^3/uL (0.0-0.2); LYMPHOCYTES # (AUTO) 1.1 X10^3/uL (1.3-2.9); LYMPHOCYTES % (AUTO) 24.3 % (21.0-51.0); MEAN CORPUSCULAR HEMOGLOBIN 37.2 pg (27.0-34.0); MEAN CORPUSCULAR HGB CONC 34.2 g/dL (33.0-35.0); MEAN CORPUSCULAR VOLUME 108.8 fL (80.0-100.0); MEAN PLATELET VOLUME 9.6 fL (7.4-11.0); MONOCYTES # (AUTO) 0.3 x10^3/uL (0.3-0.8); MONOCYTES % (AUTO) 6.6 % (0.0-13.0); NEUTROPHILS # (AUTO) 2.8 x10^3/uL (2.2-4.8); NEUTROPHILS % (AUTO) 64.6 % (42.0-75.0); PLATELET COUNT 56 X10^3/uL (150.0-450.0); RED BLOOD COUNT 1.82 X10^6/uL (4.7-6.0); RED CELL DISTRIBUTION WIDTH 15.3 % (11.6-16.5); WHITE BLOOD COUNT 4.4 X10^3/uL (3.6-10.0)
[2024-05-26 07:01] LABS: HEMATOCRIT 19.8 % (42.0-54.0); HEMOGLOBIN 6.8 g/dL (13.5-18.0)
[2024-05-26 07:25] LABS: ALBUMIN 2.4 g/dL (3.4-5.0); CALCIUM 8.7 mg/dL (8.5-10.1); CREATININE 6.65 mg/dL (0.70-1.30); POTASSIUM 5.4 mmol/L (3.5-5.1); TOTAL PROTEIN 6.3 g/dL (6.4-8.2)
[2024-05-26 07:35] LABS: PLATELET MORPHOLOGY COMMENT NORMAL (NORMAL)
[2024-05-26 17:39] VITALS: BP 136/63; PULSE 63; RESP 13; TEMP 97.6; O2SAT 94
--- NOTE | 2024-05-27 07:12 | RAD ---
EXAM:CHEST, 1 VIEWHISTORY:Congestion; [place], CAD, HTN, DM, CHF SX: AAA REPAIR, ABD, ANGIO/STENTS, LITHOTRIPSYCOMPARISON:No relevant prior studies were available for comparison at the time of interpretation.TECHNIQUE:CHEST, 1 VIEWFINDINGS:Chest:Lines and tubes: Right-sided pacemaker generator with lead or leads in satisfactory position. Abandoned left-sided pacemaker leads are notedMediastinum: Median sternotomy wires are present. The cardiac shadow is enlarged.Pulmonary vessels: There is pulmonary vascular congestion.Lung hoang: No suspicious airspace opacity.Pleura: There is blunting of the left costophrenic angle. No pneumothorax.Bones and soft tissues: No acute osseous or soft tissue abnormality.IMPRESSION:1. Findings suggest heart failure with a small left pleural effusionTHIS IS AN ELECTRONICALLY VERIFIED FINAL REPORT05/27/2024 7:09 AM - Electronically signed by Hayden Garcia MD
[2024-05-27 10:50] LABS: CARBON DIOXIDE 14.6 mmol/L (21-32)
== END 2024-05-26 12:30 | disposition hospice, inpatient (51) | DRG 689 ==
LOC: ICU 16:52 → ER 16:52 → OBSVTOIN 21:40 → ICU 23:01
PROVIDERS: ADMIT Internal Medicine; ATTEND Internal Medicine
DX: R68.0 Hypothermia, not associated with low environmental temperature; L89.322 Pressure ulcer of left buttock, stage 2; E87.5 Hyperkalemia; R78.81 Bacteremia; E83.42 Hypomagnesemia; E86.0 Dehydration; J18.8 Other pneumonia, unspecified organism; N17.8 Other acute kidney failure; Z95.0 Presence of cardiac pacemaker; K56.41 Fecal impaction; B95.2 Enterococcus as the cause of diseases classified elsewhere; Z79.01 Long term (current) use of anticoagulants; Z16.12 Extended spectrum beta lactamase (ESBL) resistance; N18.6 End stage renal disease; E03.8 Other specified hypothyroidism; R62.7 Adult failure to thrive; E11.65 Type 2 diabetes mellitus with hyperglycemia; D50.8 Other iron deficiency anemias; D63.1 Anemia in chronic kidney disease; D69.6 Thrombocytopenia, unspecified; I50.9 Heart failure, unspecified; Z66 Do not resuscitate; I48.91 Unspecified atrial fibrillation; E87.1 Hypo-osmolality and hyponatremia; R26.89 Other abnormalities of gait and mobility; N40.1 Benign prostatic hyperplasia with lower urinary tract symptoms; R53.1 Weakness; L89.312 Pressure ulcer of right buttock, stage 2; J90 Pleural effusion, not elsewhere classified; N39.0 Urinary tract infection, site not specified; Z03.818 Encounter for observation for suspected exposure to other biological agents ruled out; R06.02 Shortness of breath

== ENCOUNTER 2024-05-26 12:30 | Inpatient (IN) ==
[2024-05-26] MEDS ORDERED: COLACE CAP 100 MG PO PRN (19:34)
[2024-05-26] MEDS ORDERED: HYOSCYAMINE SULFATE ODT PO PRN (19:34)
[2024-05-26] MEDS ORDERED: ZOFRAN INJ 4 MG VIAL IVP PRN (19:34)
[2024-05-26] MEDS ORDERED: DULCOLAX SUPPOSITORY 10 MG RECTAL PRN (19:34)
[2024-05-26] MEDS ORDERED: NovoLIN R (or HumuLIN R) SUBCUT PRN (19:34)
[2024-05-26] MEDS ORDERED: TYLENOL 325 MG TAB PO PRN (19:34)
[2024-05-26 20:36] VITALS: BMI 26.9
[2024-05-26] MEDS: KAYEXALATE SUSP PO SCH (20:45)
[2024-05-26] MEDS: SNACK - Diabetic Appropriate PO SCH (20:45)
[2024-05-26] MEDS: ELIQUIS PO SCH (20:49)
[2024-05-27] MEDS: SYNTHROID 150 mcg TAB PO SCH (05:35)
[2024-05-27] MEDS: LASIX IVP SCH (08:06)
[2024-05-27] MEDS ORDERED: ISOPTO ATROPINE AFFEYE PRN (15:36)
[2024-05-27] MEDS: MORPHINE SULFATE INJ 2 MG INJ IVP PRN (18:15)
[2024-05-27] MEDS: NORCO 5/325 MG TAB PO PRN (19:42)
[2024-05-29 09:05] VITALS: BP 113/54; PULSE 60; TEMP 93.4; O2SAT 94
[2024-05-29] MEDS: ATIVAN TAB 1 MG PO PRN (09:13)
[2024-05-29] MEDS: MORPHINE SULFATE ORAL SOLN CONC PO PRN (14:34)
[2024-05-29] MEDS: DURAGESIC 12 MCG/HR PATCH TD SCH (14:39)
[2024-05-29 18:59] VITALS: RESP 16
[2024-05-30] MEDS: ISOPTO ATROPINE SL PRN (15:03)
[2024-05-30] MEDS: ROBITUSSIN DM PO PRN (19:24)
== END 2024-05-31 15:08 | disposition expired | DRG 683 ==
LOC: ICU 12:30 → MED/SURG 05-28 17:20
PROVIDERS: ADMIT Internal Medicine; ATTEND Internal Medicine